=== PATIENT | female | born 1960 | race Caucasian/White ===

== ENCOUNTER 2019-12-12 11:34 | Emergency (ER) | payer BC, SELFPAY ==
--- NOTE | ~2019-12-12 | XR_ITS ---
XR chest 2V DATE: 12/12/2019 12:10 INDICATION: Shortness breath. Flulike symptoms. Left back pain. TECHNIQUE: PA and lateral views COMPARISON: None FINDINGS: Normal heart size. Mild discoid atelectasis or scarring at the posterior left lung base. Th e lungs otherwise appear clear. No pleural effusion or pulmonary vascular congestion or pneumothorax. No hilar or mediastinal enlargement. Aortic calcification. Included skeletal structures are unremarkable. IMPRESSION: Mild atelectasis or scarring at the posterior left lung base, left lower lobe Reviewed, dictated and finalized at location A. [employer]
[2019-12-12 11:37] VITALS: BP 130/78; PULSE 115; RESP 16; TEMP 36.9; O2SAT 97
--- NOTE | 2019-12-12 12:23 | ED.URI ---
HPI - URI/Sore Throat General Chief Complaint: Upper Respiratory Infection Stated Complaint: sick case Time Seen by Provider: 12/12/19 12:16 Source: patient and RN notes reviewed Mode of arrival: ambulatory Limitations: no limitations History of Present Illness HPI Narrative: A 59 y/o female presents to the ED with a dry cough for the past 3 weeks. She states that her cough has been improving but that last night she began to cough and sneeze violently when she heard a pop in her upper lt back. She reports immediate severe upper lt back pain, so she decided to come to the ED. She denies any fevers, chills, SOB, CP, N/V/D, ABD pain, and any other medical complaints at the same time. MD elicited complaint: cough (dry) Onset (ago): week(s) (3) Consistency: improved Associated symptoms: other (sneezing and severe lt uppper back pain) Related Data Allergies Allergy/AdvReac Type Severity Reaction Status Date / Time No Known Allergies Allergy Mild Verified 12/12/19 11:42 Review of Systems Review of Systems: All systems reviewed & are unremarkable except as noted in HPI and below Constitutional: Constitutional: Denies chills, Denies fatigue, Denies fever(s), Denies headache(s) and Denies night sweats Eyes: Eyes: Denies change in vision, Denies loss of vision and Denies other visual disturbances ENT: Denies headache(s), Denies hoarseness, Denies epistaxis, Denies nasal congestion, Denies sore throat and Reports other (sneezing) Cardiovascular: Cardiovascular: Denies chest pain, Denies leg edema, Denies palpitations and Denies dyspnea Respiratory: Respiratory: Reports cough (dry), Denies dyspnea and Denies wheezing Gastrointestinal: Gastrointestinal: Denies abdominal pain, Denies diarrhea, Denies nausea and Denies vomiting Genitourinary: Genitourinary: Denies hematuria, Denies urinary frequency and Denies dysuria Musculoskeletal: Musculoskeletal: Denies abnormal gait, Reports back pain (severe upper lt back pain), Denies deformity, Denies joint swelling, Denies muscle weakness and Denies numbness Integumentary/Breasts: Skin/Breast: Denies rash, Denies unusual bruising and Denies wounds Neurologic: Denies abnormal gait, Denies headache(s), Denies focal weakness, Denies loss of vision and Denies numbness Psychiatric: Psychiatric: Reports no additional psychiatric complaints Endocrine: Endocrine: Denies fatigue and Denies palpitations Hematologic/Lymphatic: Hematologic/Lymphatic: Denies easy bleeding and Denies easy bruising Allergic/Immunologic: Allergic/Immunologic: Denies wheezing PMFSH Past Medical History Medical History (Updated 12/12/19 @ 15:06 by Robinson Garibay MD) Endometriosis Surgical History Surgical History (Updated 12/12/19 @ 12:24 by Tanner Deleon) History of hand surgery History of hysterectomy Social History Social History (Updated 12/12/19 @ 12:25 by Tanner Deleon) Smoking packs per day: 1 Smoking cigarettes per day: 20.0 Smoking status: Current every day smoker Exam Const: General: healthy appearing, no acute distress and well developed Nutritional Appearance: well nourished Orientation/consciousness: patient oriented x3 (alert) and Other orientation findings (Alert) Limitations: no limitations HENMT: Head: normocephalic and atraumatic Ears: external ears normal General nose exam: No nasal discharge present and no epistaxis Face and sinus: face symmetric Mouth: Yes lip normal, Yes tongue normal and Yes moist mucous membranes Throat: other (No exudate, no erythema) Eyes: Conjunctivae: conjunctivae normal Sclera: sclerae normal EOM: EOMs intact bilaterally Neck: Neck: full ROM, no lymphadenopathy and supple Thyroid: thyroid normal Chest: Chest palpation & inspection: no tenderness Resp: Effort & Inspection: normal respiratory effort Auscultation: clear to auscultation bilaterally, no rales, no rhonchi, no wheezes and other (breath sounds equal) Cardio: Rate: tachycardic Rhythm: r
--- NOTE | 2019-12-12 12:34 | ECG_ITS ---
Measurements Intervals Harvest Rate: 104 P: 31 IA: 152 QRS: -14 QRSD: 67 T: 48 QT: 350 QTc: 461 Interpretive Statements SINUS TACHYCARDIA DELAYED PRECORDIAL R/S TRANSITION BORDERLINE ST-T WAVE ABNORMALITY- ANTERIOR LEADS BORDERLINE ECG Electronically Signed On 12-12-2019 16:38:17 [employer] AND [employer] TECHNICIAN by Khai Mccarthy D.O.
[2019-12-12 12:42] LABS: Basophils Absolute Auto 0.1 K/mm3 (0.0-0.1); Basophils Percent Auto 0.7 % (0.2-1.2); Eosinophils Absolute Auto 0.1 K/mm3 (0-0.3); Eosinophils Percent Auto 0.9 % (0-4.4); Hematocrit 47.1 % (37.0-47.0); Hemoglobin 15.8 g/dL (12.0-15.0); Immature Granulocyte Absolute 0.07 K/mm3 (0.00-0.031); Immature Granulocyte Percent A 0.6 % (0-0.5); Lymphocytes Absolute Auto 3.24 K/mm3 (0.9-3.2); Lymphocytes Percent Auto 27.3 % (18.3-44.2); Mean Corpuscular HGB Conc 33.5 g/dl (32-36); Mean Corpuscular Hemoglobin 32.2 pg (26-34); Mean Corpuscular Volume 95.9 fl (80-100); Mean Platelet Volume 9.9 fl (7.4-10.4); Monocytes Percent Auto 8.1 % (2.6-8.5); Neutrophils Absolute Auto 7.4 K/mm3 (1.3-6.7); Neutrophils Percent Auto 62.4 % (45.5-73.1); Platelet Count Result 360 k/mm3 (150-375); Red Blood Count 4.91 M/mm3 (4.2-5.4); Red Cell Distribution Width 12.2 % (11.5-14.5); White Blood Count 11.9 K/mm3 (4.5-10.0)
[2019-12-12 12:54] LABS: Blood Urea Nitrogen 9 mg/dL (7-17); Calcium 9.7 mg/dL (8.4-10.2); Carbon Dioxide 21 mmol/L (22-30); Chloride 96 mmol/L (98-107); Estimated CRCL calculation 85 ml/min; Estimated Glomerular Filt Rate > 60; Glucose 244 mg/dL (65-105); Potassium 4.4 mmol/L (3.4-5.0); Sodium 137 mmol/L (137-145)
[2019-12-12 12:58] LABS: D Dimer 0.43 ug/mL (<0.48)
[2019-12-12 13:06] LABS: Troponin I < 0.012 ng/mL (0.000-0.034)
[2019-12-12 13:26] LABS: Beta-Hydroxybutyrate/Acetoacetate 0.22 mmol/L (0.02-0.27)
[2019-12-12] MEDS: KETOROLAC 30 MG/ML VIAL (*BKC) IV PUSH (13:39)
[2019-12-12] MEDS: INSULIN HUMAN REGULAR (*BKC) 100 UNITS/ML IV PUSH (13:41)
[2019-12-12] MEDS: LACTATED RINGERS 1,000 ML 999 ML IV CONT (13:44)
[2019-12-12 14:34] LABS: Glucose Point of Care 170 (65-105)
[2019-12-12 15:16] LABS: Add Urine Microscopic? YES; Appearance Urine Cloudy (Clear); Bacteria Urine Trace /hpf; Bilirubin Urine Negative (Negative); Blood Urine Negative (Negative); Color Urine Yellow (Yellow); Glucose Urine UA 2+ mg/dL (Negative); Ketones Urine Trace mg/dL (Negative); Leukocyte Esterase Ur Negative LEU/UL (Negative); Mucus Urine Heavy /lpf; Nitrate Urine Negative (Negative); Protein Urine 1+ mg/dL (Negative); RBC Urine 0-2 /hpf (0-2); Specific Grav Ur 1.027 (1.001-1.035); Squamous Epithelial Cell Urine Many /hpf (Few); Urobilinogen Urine Negative mg/dL (<2.0); WBC Urine 0-3 /hpf
[2019-12-12 15:44] LABS: Hemoglobin A1C 8.7 % (<5.7)
[2019-12-12 15:59] VITALS: BP 122/68; PULSE 100; RESP 20; O2SAT 97
--- NOTE | 2019-12-18 08:24 | PC.NURSE ---
LATE ENTRY This note is being entered to document information to the patient's record. The following information was omitted on [12/12/2019], by [SURESH Langley]. LR 1000mL infused with a stop time of 1445.
== END 2019-12-12 16:00 | disposition home or self-care (01) ==
PROVIDERS: Emergency Provider Emergency Medicine
DX: J40 Bronchitis, not specified as acute or chronic (principal); E11.9 Type 2 diabetes mellitus without complications; S29.012A Strain of muscle and tendon of back wall of thorax, initial encounter; F17.210 Nicotine dependence, cigarettes, uncomplicated; N80.9 Endometriosis, unspecified; R00.0 Tachycardia, unspecified; R94.31 Abnormal electrocardiogram [ECG] [EKG]; X50.9XXA Other and unspecified overexertion or strenuous movements or postures, initial encounter
CPT/HCPCS: 36415; 71046; 80048; 81001; 82010; 83036; 84443; 84484; 85025; 85380; 87804; 93005; 96361; 96374; 96375; 99284; J1815; J1885; J7120

== ENCOUNTER 2025-10-14 15:04 | Inpatient (IN) | payer SELFPAY ==
[2025-10-14] VITALS (24 sets, daily range): BP systolic 137–171; BP diastolic 67–84; PULSE 81–102; RESP 14–18; TEMP 35.4–36.4; O2SAT 97–100; BMI 22.6
--- NOTE | ~2025-10-14 | XR_ITS ---
EXAMINATION: XR chest 1V portable COMPARISON: No comparisons available. HISTORY: weakness FINDINGS: The lungs are clear, no effusion. No pneumothorax. Heart is normal size. Mediastinal and hilar contours are within normal limits. Bony thorax no acute abnormality. Miscellaneous: None Impression: No acute cardiopulmonary abnormality. Reviewed, dictated and finalized at location P. OR SYSTEMS ANALYST Impression: No acute cardiopulmonary abnormality.
--- NOTE | ~2025-10-14 | CT_ITS ---
CTA neck Clinical History: Acute CVA Technique: Helical images thoracic inlet through skull base 100 mL IV contrast Coronal, sagittal reformats. Multiplanar MIPS CT images acquired with automatic exposure control for dose reduction. DLP: 495 mGy-cm Comparison: None Findings: NASCET Criteria utilized CTA FINDINGS: Aortic arch: No aneurysm or dissection. Great vessel origins: No stenosis. Critical stenosis middle left subclavian artery. Appearance suggests acute thrombus. CCAs: No stenosis. Cervical ICAs: Carotid bulb disease but no significant stenosis. Vertebral Arteries: Occluded left V4 segment. Right side critical ostial stenosis. Visualized [place]: Unremarkable. NON-CTA FINDINGS: Lung Apices: Emphysema. Thyroid: Unremarkable. Nodes: No enlarged nodes. Bones: No acute bony abnormality. Esophageal wall thickening/esophagitis. Findings discussed via telephone by myself with Dr. Armstrong in emergency Department at 9:10 AM EST. IMPRESSION: 1. Occluded left vertebral artery distally. Worrisome for embolus given below. 2. Severe stenosis left subclavian artery from noncalcified thrombus Reviewed, dictated and finalized at location R. Y LEVEL MANAGER
--- NOTE | ~2025-10-14 | XR_ITS ---
Examination: XR chest 1V portable Clinical History: Worsening cough Comparison: 1 day prior Technique: Portable AP Findings: Heart size normal. Lungs clear. No acute bony abnormality. IMPRESSION: 1. No acute cardiopulmonary findings given portable technique. Reviewed, dictated and finalized at location R. OR TAX SPECIALIST
--- NOTE | ~2025-10-14 | CT_ITS ---
EXAMINATION: CT angiogram brain with and without contrast: DATE: 10/14/2025 INDICATION: 55-year-old female with altered mental status. TECHNIQUE: Noncontrast CT head was performed followed by postcontrast CT angiogram with 100 cc of Omnipaque 350. Multiplanar and 3-D reconstruction obtained. Radiation dose 995 MG Y C.M. COMPARISON: None. FINDINGS: No acute intracranial lesions in the precontrast CT. Focal encephalomalacia of the left occipital lobe consistent with old infarct. On the CT angiogram, intracranial portion of internal carotid arteries are patent on both sides. The anterior and the middle cerebral arteries are patent on both sides. The vertebral and basilar arteries are patent. The posterior cerebral arteries are patent with right posterior cerebral arteries supplied from the anterior circulation. Dural venous sinuses are patent. IMPRESSION: 1. No acute intracranial finding on precontrast study. 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 2. Major arteries of [place] are patent. Dural venous sinuses are patent. Reviewed, dictated and finalized at location T. FLOPPER IMPRESSION: 1. No acute intracranial finding on precontrast study. 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 2. Major arteries of [place] are patent. Dural venous sinuses are white nt.
--- NOTE | ~2025-10-14 | CT_ITS ---
EXAMINATION: CTA chest PE abdomen pel, 10/14/2025 16:50 MANAGER SOCIAL SERVICES HISTORY: sob COMPARISON: No comparisons available. TECHNIQUE: CTA scan with 3D Reconstructions of the chest, CT of the abdomen and pelvis was performed with contrast Isovue 300, 92cc injected IV. One or more of the following dose reduction techniques were used: automated exposure control, adjustment of the mA and/or kV according to patient size, use of iterative reconstruction technique. Unless otherwise stated, incidental findings do not require dedicated follow up imaging FINDINGS: CT chest: No significant coronary calcification is present ([id number]) LUNGS: Contrast bolus is adequate, there is no pulmonary embolism identified. No tracheomalacia. No bronchiectasis. Minimal pulmonary fibrotic changes. Minimal emphysematous changes. No significant honeycombing identified or areas of bullous formation. Right lower lobe pleural-based 6 mm nodule, in a high-risk patient six-month follow-up is suggested. HEART AND PERICARDIUM: Within normal limits. AORTA: Atherosclerotic changes of the aorta without aneurysm. MEDIASTINUM: Unremarkable. THYROID: The thyroid is unremarkable. CT abdomen: LIVER: Unremarkable, liver contours intact, no lesions. SPLEEN: Unremarkable, no splenomegaly. KIDNEYS: Right Kidney: Unremarkable. No calculi. No hydronephrosis. Left Kidney: Unremarkable. No calculi. No hydronephrosis ADRENAL GLANDS: Unremarkable. PANCREAS: GALLBLADDER/BILIARY: Unremarkable. No biliary dilatation. STOMACH AND ESOPHAGUS: Circumferential thickening of the esophagus. Very small hiatal hernia. BOWEL/MESENTERY: Duodenal diverticulum 2 x 2 cm. There is thickening of the rectum and sigmoid colon as well as the descending colon with mild mucosal hyperemia but no perforation or abscess. Minimal thickening noted of the remaining large bowel. Appendix normal. Mesentery appears normal. There are no thickened or dilated loops of small bowel appreciated. RETROPERITONEUM: Unremarkable AORTA/VASCULATURE: Normal caliber aorta. FREE FLUID OR FREE AIR: None. CT pelvis: SOLID ORGANS/REPRODUCTIVE: Hysterectomy. No adnexal mass. BLADDER: Within normal limits. LYMPHADENOPATHY: No lymphadenopathy. OSSEOUS STRUCTURES: No acute osseous abnormality.No suspicious lesions. OVERLYING SOFT TISSUES: Unremarkable. IMPRESSION: 1. Negative for pulmonary embolism. No acute process within the chest. 2. Colitis detailed above probably infectious. No perforation or abscess. Follow-up suggested to assess resolution 3. Incidental findings above Reviewed, dictated and finalized at location P. GER SOCIAL SERVICES IMPRESSION: 1. Negative for pulmonary embolism. No acute process within the chest. 2. Colitis detailed above probably infectious. No perforation or abscess. Follo w-up suggested to assess resolution 3. Incidental findings above
--- NOTE | 2025-10-14 15:07 | ED.GENADULT ---
HPI - General Adult General Chief complaint: Altered Mental Status <Liu Pina MD - Last Filed: 10/14/25 18:24> Stated complaint: AMS <Liu Pina MD - Last Filed: 10/14/25 18:24> Time Seen by Provider: 10/14/25 15:07 <Liu Pina MD - Last Filed: 10/14/25 18:24> History of Present Illness HPI narrative: This is a 65-year-old female no reported past medical history and has not seen a physician in over 30 years who presents from home with chief complaint of sick. Per family who arrived the patient had been vomiting was globally weak difficult to respond. She has been complaining of some urinary symptoms nausea and vomiting. She takes no medications. She denies any abdominal pain no lateralizing weakness or paresthesias no falls no fevers or chills no headache. Patient states ?there is nothing wrong with me?. <Liu Pina MD - Last Filed: 10/14/25 18:24> Related Data Allergies/adverse reactions: Allergies Allergy/AdvReac Type Severity Reaction Status Date / Time No Known Allergies Allergy Mild Verified 10/15/25 00:09 <Liu Pina MD - Last Filed: 10/14/25 18:24> Review of Systems Review of Systems: All systems reviewed & are unremarkable except as noted in HPI and below <Liu Pina MD - Last Filed: 10/14/25 18:24> [facility] Past Medical History Medical History: Medical History (Updated 10/14/25 @ 22:35 by Mona Bazan DO) Endometriosis <Liu Pina MD - Last Filed: 10/14/25 18:24> Surgical History Surgical History: Surgical History (Updated 10/14/25 @ 22:17 by Mona Bazan DO) History of surgery on right wrist (2003) Due to distal forearm fracture History of hysterectomy <Liu Pina MD - Last Filed: 10/14/25 18:24> Social History Social History: Social History (Updated 10/14/25 @ 22:30 by Mona Bazan DO) Social History: Code status: Full code Surrogate decision maker: Smoking packs per day: 1 Smoking cigarettes per day: 20.0 Years smoked: 45 Smoking pack-years: 45.00 Smoking status: Heavy tobacco smoker Second hand tobacco smoke exposure: Yes <Liu Pina MD - Last Filed: 10/14/25 18:24> Exam Narrative: EXAMINATION OF ORGAN SYSTEMS/BODY AREAS: Constitutional: Vital signs per nursing patient is borderline hypo GENERAL: Patient is slightly diet, actively vomiting HEAD: Normal with no signs of head trauma. EYES: EOMI, conjunctiva normal ENT: Hearing grossly intact LUNGS: Nonlabored breathing. Clear to auscultation HEART: [Regular rate and rhythm], sluggish cap refill skin is cool to touch 2+ radial pulses. ABD: [Soft], [nontender to palpation], no rebound or guarding. EXT: Normal range of motion SKIN: [No rashes or lesions.] NEURO: Patient is alert oriented x3, cranial nerves 2-12 intact cerebellar testing negative. I did not assess the patient's gait. NIH score of 0 PSYCH: Normal affect <Liu Pina MD - Last Filed: 10/14/25 18:24> Course Vital Signs Vital signs: Vital Signs Temperature 95.7 F L 10/14/25 15:09 Pulse Rate 81 10/14/25 15:09 Respiratory Rate 18 10/14/25 15:09 Blood Pressure 164/71 H 10/14/25 15:09 Pulse Oximetry 98 10/14/25 15:09 Oxygen Delivery Room Air 10/14/25 15:09 Temperature 97.6 F 10/14/25 19:16 Pulse Rate 99 10/14/25 23:38 Respiratory Rate 18 10/14/25 23:38 Blood Pressure 146/82 H 10/14/25 22:36 Pulse Oximetry 100 10/14/25 22:36 Oxygen Delivery Room Air 10/14/25 22:51 <Liu Pina MD - Last Filed: 10/14/25 18:24> Vital Signs Temperature 95.7 F L 10/14/25 15:09 Pulse Rate 81 10/14/25 15:09 Respiratory Rate 18 10/14/25 15:09 Blood Pressure 164/71 H 10/14/25 15:09 Pulse Oximetry 98 10/14/25 15:09 Oxygen Delivery Room Air 10/14/25 15:09 Temperature 97.6 F 10/14/25 19:16 Pulse Rate 99 10/14/25 23:38 Respiratory Rate 18 10/14/25 23:38 Blood Pressure 146/82 H 10/14/25 22:36 Pulse Oximetry 100 10/14/25 22:36 Oxygen Delivery Room Air 10/14/25 22:51 <Aldo Swift DO - Last Filed: 10/15/25 00:13> [facility] Differential Diagnosis Differential Diagnosis: This 65-year-old female with reportedly no past medical history presents nausea vomiting intermittent altered mental status who is cold and clammy to touch. Her blood sugars over 400. I am concern for systemic infectious etiology. There was concern for slurred speech however her NIH is 0 she has no lateralizing neurological findings. I do not have suspicion at this juncture for ischemic stroke will get CT and CTAs of the head in addition to CT abdomen pelvis and chest she does appear to be critically ill. Obtain blood cultures urinalysis basic labs continuous vital sign monitoring IV fluids of 30 cc/kg bolus of ideal weight fluids for presumed underlying sepsis implant for evaluation after workup and treatment. Results and re-evaluation Patient's labs notable for a lactic acid of 5, blood sugar of over 400 A1c of 10 she has a mild elevated anion gap and low bicarb concerning for [id number] DKA. We will do IV hydration and repeat the lactic acid and metabolic panel. I did call and speak with Dr. Ellison the ICU the recommends recheck in the metabolic panel and should it be still concerning for [id number] DKA after IV fluids we will start the IV insulin drip and admitted to the ICU otherwise she will be appropriate for the step-down telemetry bed. Patient will be signed out to oncoming ED MD pending repeat metabolic panel with plan for hospital admission. Patient family updated sign out in tears condition. Patient's labs notable for UA with bacteria wbc's nitrite positive so urine culture was sent I did give her 2 g of IV Rocephin. <Liu Pina MD - Last Filed: 10/14/25 18:24> This 65-year-old female with reportedly no past medical history presents nausea vomiting intermittent altered mental status who is cold and clammy to touch. Her blood sugars over 400. I am concern for systemic infectious etiology. There was concern for slurred speech however her NIH is 0 she has no lateralizing neurological findings. I do not have suspicion at this juncture for ischemic stroke will get CT and CTAs of the head in addition to CT abdomen pelvis and chest she does appear to be critically ill. Obtain blood cultures urinalysis basic labs continuous vital sign monitoring IV fluids of 30 cc/kg bolus of ideal weight fluids for presumed underlying sepsis implant for evaluation after workup and treatment. Results and re-evaluation Patient's labs notable for a lactic acid of 5, blood sugar of over 400 A1c of 10 she has a mild elevated anion gap and low bicarb concerning for [id number] DKA. We will do IV hydration and repeat the lactic acid and metabolic panel. I did call and speak with Dr. Ellison the ICU the recommends recheck in the metabolic panel and should it be still concerning for [id number] DKA after IV fluids we will start the IV insulin drip and admitted to the ICU otherwise she will be appropriate for the step-down telemetry bed. Patient will be signed out to oncoming ED MD pending repeat metabolic panel with plan for hospital admission. Patient family updated sign out in tears condition. Patient's labs notable for UA with bacteria wbc's nitrite positive so urine culture was sent I did give her 2 g of IV Rocephin. Patient signed out to me pending repeat BMP. Repeat BMP showed closure of the gap. Patient will be admitted to the hospitalist. Case was discussed with Dr. Bazan who will admit the patient. <Aldo Swift DO - Last Filed: 10/15/25 00:13> Lab Data MDM Lab Attestation statement: I personally reviewed the patient's lab results. <Liu Pina MD - Last Filed: 10/14/25 18:24> Result diagrams: 10/14/25 16:53 10/14/25 21:03 <Liu Pina MD - Last Filed: 10/14/25 18:24> Labs: Lab Results 10/14/25 10/14/25 10/14/25 Range/Units 15:44 15:44 15:44 WBC (4.5-10.0) K/mm3 RBC (4.2-5.4) M/mm3 Hgb (12.0-15.0) g/dL Hct (37.0-47.0) % MCV (80-100) fl MCH (26-34) pg MCHC (32-36) g/dl RDW (11.5-14.5) % Plt Count (150-375) k/mm3 MPV (7.4-10.4) fl Immature Gran % (Auto) (0-0.5) % Neut % (Auto) (45.5-73.1) % Lymph % (Auto) (18.3-44.2) % [place] % (Auto) (2.6-8.5) % Eos % (Auto) (0-4.4) % Baso % (Auto) (0.2-1.2) % Lymph # (Auto) (0.9-3.2) K/mm3 [place] # (Auto) (0.1-0.6) K/mm3 Eos # (Auto) (0-0.3) K/mm3 Baso # (Auto) (0.0-0.1) K/mm3 Abs Immat Gran (auto) (0.00-0.031) K/mm3 Absolute Neuts (auto) (1.3-6.7) K/mm3 Absolute Nucleated RBC (0.0-0.012) K/mm3 Nucleated RBC % (0.0-0.2) % PT 13.3 (11.1-14.7) Seconds INR 1.0 Sodium 136 L (137-145) mmol/L Potassium 3.1 L (3.4-5.0) mmol/L Chloride 104 (98-107) mmol/L Carbon Dioxide 18 L (22-30) mmol/L Anion Gap 14 H (4-12) mmol/L BUN 12 (7-17) mg/dL Creatinine 0.61 L (0.7-1.0) mg/dL Estim Creat Clear Calc 66 ml/min Estimated GFR > 60 (59 - ) Glucose 411 H (65-110) mg/dL Hemoglobin A1c 10.2 H (<5.7) % Lactic Acid 4.2 H* (0.7-2.0) mmol/L Calcium 9.9 (8.4-10.2) mg/dL Phosphorus 4.1 Cancelled (2.5-4.5) mg/dL Magnesium 2.1 Cancelled (1.6-2.3) mg/dL Total Bilirubin 0.6 (0.2-1.3) mg/dL AST 22 (14-36) U/L ALT 23 (6-35) U/L Alkaline Phosphatase 181 H (38-126) U/L Ammonia < 9 L (9-30) umol/L Troponin I < 0.012 (0.000-0.034) ng/mL Total Protein 8.4 H (6.3-8.2) g/dL Albumin 4.6 (3.5-5.1) g/dL TSH 1.740 (0.465-4.680) uIU/mL Urine Color (Yellow) Urine Appearance (Clear) Urine pH (5.0-9.0) Ur Specific [place] (1.001-1.035) Urine Protein (Negative) mg/dL Urine Glucose (UA) (Negative) mg/dL Urine Ketones (Negative) mg/dL Ur Blood (Man) (Negative) Urine Nitrate (Negative) Urine Bilirubin (Negative) Urine Urobilinogen (<2.0) mg/dL Leukocyte Esterase Rfl (Negative) YUNG/UL Urine RBC (0-2) /hpf Urine WBC (0-3) /hpf Ur Squamous Epith Cells (Few) /hpf Urine Bacteria /hpf Urine Casts Urine Opiates Screen (Negative) Urine Methadone Screen (Negative) Ur Barbiturates Screen (Negative) Ur Phencyclidine Scrn (Negative) Ur Amphetamine Screen (Negative) U Benzodiazepines Scrn (Negative) Urine Cocaine Screen (Negative) U Cannabinoids Screen (Negative) Ethyl Alcohol < 10 (<10) mg/dL 10/14/25 10/14/25 10/14/25 Range/Units 16:32 16:53 18:03 WBC 15.5 H (4.5-10.0) K/mm3 RBC 4.15 L (4.2-5.4) M/mm3 Hgb 13.8 (12.0-15.0) g/dL Hct 39.9 (37.0-47.0) % MCV 96.1 (80-100) fl MCH 33.3 (26-34) pg MCHC 34.6 (32-36) g/dl RDW 12.6 (11.5-14.5) % Plt Count 231 (150-375) k/mm3 MPV 9.9 (7.4-10.4) fl Immature Gran % (Auto) 1.4 H (0-0.5) % Neut % (Auto) 79.7 H (45.5-73.1) % Lymph % (Auto) 13.6 L (18.3-44.2) % [place] % (Auto) 4.7 (2.6-8.5) % Eos % (Auto) 0.1 (0-4.4) % Baso % (Auto) 0.5 (0.2-1.2) % Lymph # (Auto) 2.11 (0.9-3.2) K/mm3 [place] # (Auto) 0.7 H (0.1-0.6) K/mm3 Eos # (Auto) 0.0 (0-0.3) K/mm3 Baso # (Auto) 0.1 (0.0-0.1) K/mm3 Abs Immat Gran (auto) 0.22 H (0.00-0.031) K/mm3 Absolute Neuts (auto) 12.3 H (1.3-6.7) K/mm3 Absolute Nucleated RBC 0.000 (0.0-0.012) K/mm3 Nucleated RBC % 0.0 (0.0-0.2) % PT (11.1-14.7) Seconds INR Sodium (137-145) mmol/L Potassium (3.4-5.0) mmol/L Chloride (98-107) mmol/L Carbon Dioxide (22-30) mmol/L Anion Gap (4-12) mmol/L BUN (7-17) mg/dL Creatinine (0.7-1.0) mg/dL Estim Creat Clear Calc ml/min Estimated GFR (59 - ) Glucose (65-110) mg/dL Hemoglobin A1c (<5.7) % Lactic Acid 3.4 H (0.7-2.0) mmol/L Calcium (8.4-10.2) mg/dL Phosphorus (2.5-4.5) mg/dL Magnesium (1.6-2.3) mg/dL Total Bilirubin (0.2-1.3) mg/dL AST (14-36) U/L ALT (6-35) U/L Alkaline Phosphatase (38-126) U/L Ammonia (9-30) umol/L Troponin I (0.000-0.034) ng/mL Total Protein (6.3-8.2) g/dL Albumin (3.5-5.1) g/dL TSH (0.465-4.680) uIU/mL Urine Color Yellow (Yellow) Urine Appearance Clear (Clear) Urine pH 5.5 (5.0-9.0) Ur Specific [place] 1.029 (1.001-1.035) Urine Protein Negative (Negative) mg/dL Urine Glucose (UA) 3+ H (Negative) mg/dL Urine Ketones 2+ H (Negative) mg/dL Ur Blood (Man) Negative (Negative) Urine Nitrate Positive H (Negative) Urine Bilirubin Negative (Negative) Urine Urobilinogen 0.2 (<2.0) mg/dL Leukocyte Esterase Rfl Negative (Negative) YUNG/UL Urine RBC 0-2 (0-2) /hpf Urine WBC 6-10 H (0-3) /hpf Ur Squamous Epith Cells Occasional (Few) /hpf Urine Bacteria 4+ H /hpf Urine Casts 0-2 Urine Opiates Screen Negative (Negative) Urine Methadone Screen Negative (Negative) Ur Barbiturates Screen Negative (Negative) Ur Phencyclidine Scrn Negative (Negative) Ur Amphetamine Screen Negative (Negative) U Benzodiazepines Scrn Negative (Negative) Urine Cocaine Screen Negative (Negative) U Cannabinoids Screen Negative (Negative) Ethyl Alcohol (<10) mg/dL 10/14/25 10/14/25 10/14/25 Range/Units 18:05 21:03 21:03 WBC (4.5-10.0) K/mm3 RBC (4.2-5.4) M/mm3 Hgb (12.0-15.0) g/dL Hct (37.0-47.0) % MCV (80-100) fl MCH (26-34) pg MCHC (32-36) g/dl RDW (11.5-14.5) % Plt Count (150-375) k/mm3 MPV (7.4-10.4) fl Immature Gran % (Auto) (0-0.5) % Neut % (Auto) (45.5-73.1) % Lymph % (Auto) (18.3-44.2) % [place] % (Auto) (2.6-8.5) % Eos % (Auto) (0-4.4) % Baso % (Auto) (0.2-1.2) % Lymph # (Auto) (0.9-3.2) K/mm3 [place] # (Auto) (0.1-0.6) K/mm3 Eos # (Auto) (0-0.3) K/mm3 Baso # (Auto) (0.0-0.1) K/mm3 Abs Immat Gran (auto) (0.00-0.031) K/mm3 Absolute Neuts (auto) (1.3-6.7) K/mm3 Absolute Nucleated RBC (0.0-0.012) K/mm3 Nucleated RBC % (0.0-0.2) % PT (11.1-14.7) Seconds INR Sodium 138 Cancelled (137-145) mmol/L Potassium 3.9 (3.4-5.0) mmol/L Chloride (98-107) mmol/L Carbon Dioxide (22-30) mmol/L Anion Gap (4-12) mmol/L BUN (7-17) mg/dL Creatinine (0.7-1.0) mg/dL Estim Creat Clear Calc ml/min Estimated GFR (59 - ) Glucose (65-110) mg/dL Hemoglobin A1c (<5.7) % Lactic Acid (0.7-2.0) mmol/L Calcium (8.4-10.2) mg/dL Phosphorus Cancelled (2.5-4.5) mg/dL Magnesium Cancelled (1.6-2.3) mg/dL Total Bilirubin (0.2-1.3) mg/dL AST (14-36) U/L ALT (6-35) U/L Alkaline Phosphatase (38-126) U/L Ammonia (9-30) umol/L Troponin I (0.000-0.034) ng/mL Total Protein (6.3-8.2) g/dL Albumin (3.5-5.1) g/dL TSH (0.465-4.680) uIU/mL Urine Color (Yellow) Urine Appearance (Clear) Urine pH (5.0-9.0) Ur Specific [place] (1.001-1.035) Urine Protein (Negative) mg/dL Urine Glucose (UA) (Negative) mg/dL Urine Ketones (Negative) mg/dL Ur Blood (Man) (Negative) Urine Nitrate (Negative) Urine Bilirubin (Negative) Urine Urobilinogen (<2.0) mg/dL Leukocyte Esterase Rfl (Negative) YUNG/UL Urine RBC (0-2) /hpf Urine WBC (0-3) /hpf Ur Squamous Epith Cells (Few) /hpf Urine Bacteria /hpf Urine Casts Urine Opiates Screen (Negative) Urine Methadone Screen (Negative) Ur Barbiturates Screen (Negative) Ur Phencyclidine Scrn (Negative) Ur Amphetamine Screen (Negative) U Benzodiazepines Scrn (Negative) Urine Cocaine Screen (Negative) U Cannabinoids Screen (Negative) Ethyl Alcohol (<10) mg/dL 10/14/25 10/14/25 10/14/25 Range/Units 21:03 21:03 21:03 WBC (4.5-10.0) K/mm3 RBC (4.2-5.4) M/mm3 Hgb (12.0-15.0) g/dL Hct (37.0-47.0) % MCV (80-100) fl MCH (26-34) pg MCHC (32-36) g/dl RDW (11.5-14.5) % Plt Count (150-375) k/mm3 MPV (7.4-10.4) fl Immature Gran % (Auto) (0-0.5) % Neut % (Auto) (45.5-73.1) % Lymph % (Auto) (18.3-44.2) % [place] % (Auto) (2.6-8.5) % Eos % (Auto) (0-4.4) % Baso % (Auto) (0.2-1.2) % Lymph # (Auto) (0.9-3.2) K/mm3 [place] # (Auto) (0.1-0.6) K/mm3 Eos # (Auto) (0-0.3) K/mm3 Baso # (Auto) (0.0-0.1) K/mm3 Abs Immat Gran (auto) (0.00-0.031) K/mm3 Absolute Neuts (auto) (1.3-6.7) K/mm3 Absolute Nucleated RBC (0.0-0.012) K/mm3 Nucleated RBC % (0.0-0.2) % PT (11.1-14.7) Seconds INR Sodium (137-145) mmol/L Potassium Cancelled (3.4-5.0) mmol/L Chloride 108 H Cancelled (98-107) mmol/L Carbon Dioxide 21 L Cancelled (22-30) mmol/L Anion Gap 9 (4-12) mmol/L BUN (7-17) mg/dL Creatinine (0.7-1.0) mg/dL Estim Creat Clear Calc ml/min Estimated GFR (59 - ) Glucose (65-110) mg/dL Hemoglobin A1c (<5.7) % Lactic Acid (0.7-2.0) mmol/L Calcium (8.4-10.2) mg/dL Phosphorus (2.5-4.5) mg/dL Magnesium (1.6-2.3) mg/dL Total Bilirubin (0.2-1.3) mg/dL AST (14-36) U/L ALT (6-35) U/L Alkaline Phosphatase (38-126) U/L Ammonia (9-30) umol/L Troponin I (0.000-0.034) ng/mL Total Protein (6.3-8.2) g/dL Albumin (3.5-5.1) g/dL TSH (0.465-4.680) uIU/mL Urine Color (Yellow) Urine Appearance (Clear) Urine pH (5.0-9.0) Ur Specific [place] (1.001-1.035) Urine Protein (Negative) mg/dL Urine Glucose (UA) (Negative) mg/dL Urine Ketones (Negative) mg/dL Ur Blood (Man) (Negative) Urine Nitrate (Negative) Urine Bilirubin (Negative) Urine Urobilinogen (<2.0) mg/dL Leukocyte Esterase Rfl (Negative) YUNG/UL Urine RBC (0-2) /hpf Urine WBC (0-3) /hpf Ur Squamous Epith Cells (Few) /hpf Urine Bacteria /hpf Urine Casts Urine Opiates Screen (Negative) Urine Methadone Screen (Negative) Ur Barbiturates Screen (Negative) Ur Phencyclidine Scrn (Negative) Ur Amphetamine Screen (Negative) U Benzodiazepines Scrn (Negative) Urine Cocaine Screen (Negative) U Cannabinoids Screen (Negative) Ethyl Alcohol (<10) mg/dL 10/14/25 10/14/25 10/14/25 Range/Units 21:03 21:03 21:03 WBC (4.5-10.0) K/mm3 RBC (4.2-5.4) M/mm3 Hgb (12.0-15.0) g/dL Hct (37.0-47.0) % MCV (80-100) fl MCH (26-34) pg MCHC (32-36) g/dl RDW (11.5-14.5) % Plt Count (150-375) k/mm3 MPV (7.4-10.4) fl Immature Gran % (Auto) (0-0.5) % Neut % (Auto) (45.5-73.1) % Lymph % (Auto) (18.3-44.2) % [place] % (Auto) (2.6-8.5) % Eos % (Auto) (0-4.4) % Baso % (Auto) (0.2-1.2) % Lymph # (Auto) (0.9-3.2) K/mm3 [place] # (Auto) (0.1-0.6) K/mm3 Eos # (Auto) (0-0.3) K/mm3 Baso # (Auto) (0.0-0.1) K/mm3 Abs Immat Gran (auto) (0.00-0.031) K/mm3 Absolute Neuts (auto) (1.3-6.7) K/mm3 Absolute Nucleated RBC (0.0-0.012) K/mm3 Nucleated RBC % (0.0-0.2) % PT (11.1-14.7) Seconds INR Sodium (137-145) mmol/L Potassium (3.4-5.0) mmol/L Chloride (98-107) mmol/L Carbon Dioxide (22-30) mmol/L Anion Gap Cancelled (4-12) mmol/L BUN 11 Cancelled (7-17) mg/dL Creatinine 0.52 L Cancelled (0.7-1.0) mg/dL Estim Creat Clear Calc 76 ml/min Estimated GFR (59 - ) Glucose (65-110) mg/dL Hemoglobin A1c (<5.7) % Lactic Acid (0.7-2.0) mmol/L Calcium (8.4-10.2) mg/dL Phosphorus (2.5-4.5) mg/dL Magnesium (1.6-2.3) mg/dL Total Bilirubin (0.2-1.3) mg/dL AST (14-36) U/L ALT (6-35) U/L Alkaline Phosphatase (38-126) U/L Ammonia (9-30) umol/L Troponin I (0.000-0.034) ng/mL Total Protein (6.3-8.2) g/dL Albumin (3.5-5.1) g/dL TSH (0.465-4.680) uIU/mL Urine Color (Yellow) Urine Appearance (Clear) Urine pH (5.0-9.0) Ur Specific [place] (1.001-1.035) Urine Protein (Negative) mg/dL Urine Glucose (UA) (Negative) mg/dL Urine Ketones (Negative) mg/dL Ur Blood (Man) (Negative) Urine Nitrate (Negative) Urine Bilirubin (Negative) Urine Urobilinogen (<2.0) mg/dL Leukocyte Esterase Rfl (Negative) YUNG/UL Urine RBC (0-2) /hpf Urine WBC (0-3) /hpf Ur Squamous Epith Cells (Few) /hpf Urine Bacteria /hpf Urine Casts Urine Opiates Screen (Negative) Urine Methadone Screen (Negative) Ur Barbiturates Screen (Negative) Ur Phencyclidine Scrn (Negative) Ur Amphetamine Screen (Negative) U Benzodiazepines Scrn (Negative) Urine Cocaine Screen (Negative) U Cannabinoids Screen (Negative) Ethyl Alcohol (<10) mg/dL 10/14/25 10/14/25 10/14/25 Range/Units 21:03 21:03 21:03 WBC (4.5-10.0) K/mm3 RBC (4.2-5.4) M/mm3 Hgb (12.0-15.0) g/dL Hct (37.0-47.0) % MCV (80-100) fl MCH (26-34) pg MCHC (32-36) g/dl RDW (11.5-14.5) % Plt Count (150-375) k/mm3 MPV (7.4-10.4) fl Immature Gran % (Auto) (0-0.5) % Neut % (Auto) (45.5-73.1) % Lymph % (Auto) (18.3-44.2) % [place] % (Auto) (2.6-8.5) % Eos % (Auto) (0-4.4) % Baso % (Auto) (0.2-1.2) % Lymph # (Auto) (0.9-3.2) K/mm3 [place] # (Auto) (0.1-0.6) K/mm3 Eos # (Auto) (0-0.3) K/mm3 Baso # (Auto) (0.0-0.1) K/mm3 Abs Immat Gran (auto) (0.00-0.031) K/mm3 Absolute Neuts (auto) (1.3-6.7) K/mm3 Absolute Nucleated RBC (0.0-0.012) K/mm3 Nucleated RBC % (0.0-0.2) % PT (11.1-14.7) Seconds INR Sodium (137-145) mmol/L Potassium (3.4-5.0) mmol/L Chloride (98-107) mmol/L Carbon Dioxide (22-30) mmol/L Anion Gap (4-12) mmol/L BUN (7-17) mg/dL Creatinine (0.7-1.0) mg/dL Estim Creat Clear Calc Cancelled ml/min Estimated GFR > 60 Cancelled (59 - ) Glucose 316 H Cancelled (65-110) mg/dL Hemoglobin A1c (<5.7) % Lactic Acid (0.7-2.0) mmol/L Calcium 9.0 (8.4-10.2) mg/dL Phosphorus (2.5-4.5) mg/dL Magnesium (1.6-2.3) mg/dL Total Bilirubin (0.2-1.3) mg/dL AST (14-36) U/L ALT (6-35) U/L Alkaline Phosphatase (38-126) U/L Ammonia (9-30) umol/L Troponin I (0.000-0.034) ng/mL Total Protein (6.3-8.2) g/dL Albumin (3.5-5.1) g/dL TSH (0.465-4.680) uIU/mL Urine Color (Yellow) Urine Appearance (Clear) Urine pH (5.0-9.0) Ur Specific [place] (1.001-1.035) Urine Protein (Negative) mg/dL Urine Glucose (UA) (Negative) mg/dL Urine Ketones (Negative) mg/dL Ur Blood (Man) (Negative) Urine Nitrate (Negative) Urine Bilirubin (Negative) Urine Urobilinogen (<2.0) mg/dL Leukocyte Esterase Rfl (Negative) YUNG/UL Urine RBC (0-2) /hpf Urine WBC (0-3) /hpf Ur Squamous Epith Cells (Few) /hpf Urine Bacteria /hpf Urine Casts Urine Opiates Screen (Negative) Urine Methadone Screen (Negative) Ur Barbiturates Screen (Negative) Ur Phencyclidine Scrn (Negative) Ur Amphetamine Screen (Negative) U Benzodiazepines Scrn (Negative) Urine Cocaine Screen (Negative) U Cannabinoids Screen (Negative) Ethyl Alcohol (<10) mg/dL 10/14/25 Range/Units 21:03 WBC (4.5-10.0) K/mm3 RBC (4.2-5.4) M/mm3 Hgb (12.0-15.0) g/dL Hct (37.0-47.0) % MCV (80-100) fl MCH (26-34) pg MCHC (32-36) g/dl RDW (11.5-14.5) % Plt Count (150-375) k/mm3 MPV (7.4-10.4) fl Immature Gran % (Auto) (0-0.5) % Neut % (Auto) (45.5-73.1) % Lymph % (Auto) (18.3-44.2) % [place] % (Auto) (2.6-8.5) % Eos % (Auto) (0-4.4) % Baso % (Auto) (0.2-1.2) % Lymph # (Auto) (0.9-3.2) K/mm3 [place] # (Auto) (0.1-0.6) K/mm3 Eos # (Auto) (0-0.3) K/mm3 Baso # (Auto) (0.0-0.1) K/mm3 Abs Immat Gran (auto) (0.00-0.031) K/mm3 Absolute Neuts (auto) (1.3-6.7) K/mm3 Absolute Nucleated RBC (0.0-0.012) K/mm3 Nucleated RBC % (0.0-0.2) % PT (11.1-14.7) Seconds INR Sodium (137-145) mmol/L Potassium (3.4-5.0) mmol/L Chloride (98-107) mmol/L Carbon Dioxide (22-30) mmol/L Anion Gap (4-12) mmol/L BUN (7-17) mg/dL Creatinine (0.7-1.0) mg/dL Estim Creat Clear Calc ml/min Estimated GFR (59 - ) Glucose (65-110) mg/dL Hemoglobin A1c (<5.7) % Lactic Acid (0.7-2.0) mmol/L Calcium Cancelled (8.4-10.2) mg/dL Phosphorus 3.9 (2.5-4.5) mg/dL Magnesium 1.9 (1.6-2.3) mg/dL Total Bilirubin (0.2-1.3) mg/dL AST (14-36) U/L ALT (6-35) U/L Alkaline Phosphatase (38-126) U/L Ammonia (9-30) umol/L Troponin I (0.000-0.034) ng/mL Total Protein (6.3-8.2) g/dL Albumin (3.5-5.1) g/dL TSH (0.465-4.680) uIU/mL Urine Color (Yellow) Urine Appearance (Clear) Urine pH (5.0-9.0) Ur Specific [place] (1.001-1.035) Urine Protein (Negative) mg/dL Urine Glucose (UA) (Negative) mg/dL Urine Ketones (Negative) mg/dL Ur Blood (Man) (Negative) Urine Nitrate (Negative) Urine Bilirubin (Negative) Urine Urobilinogen (<2.0) mg/dL Leukocyte Esterase Rfl (Negative) YUNG/UL Urine RBC (0-2) /hpf Urine WBC (0-3) /hpf Ur Squamous Epith Cells (Few) /hpf Urine Bacteria /hpf Urine Casts Urine Opiates Screen (Negative) Urine Methadone Screen (Negative) Ur Barbiturates Screen (Negative) Ur Phencyclidine Scrn (Negative) Ur Amphetamine Screen (Negative) U Benzodiazepines Scrn (Negative) Urine Cocaine Screen (Negative) U Cannabinoids Screen (Negative) Ethyl Alcohol (<10) mg/dL <Liu Pina MD - Last Filed: 10/14/25 18:24> Lab Results 10/14/25 10/14/25 10/14/25 Range/Units 15:44 15:44 15:44 WBC (4.5-10.0) K/mm3 RBC (4.2-5.4) M/mm3 Hgb (12.0-15.0) g/dL Hct (37.0-47.0) % MCV (80-100) fl MCH (26-34) pg MCHC (32-36) g/dl RDW (11.5-14.5) % Plt Count (150-375) k/mm3 MPV (7.4-10.4) fl Immature Gran % (Auto) (0-0.5) % Neut % (Auto) (45.5-73.1) % Lymph % (Auto) (18.3-44.2) % [place] % (Auto) (2.6-8.5) % Eos % (Auto) (0-4.4) % Baso % (Auto) (0.2-1.2) % Lymph # (Auto) (0.9-3.2) K/mm3 [place] # (Auto) (0.1-0.6) K/mm3 Eos # (Auto) (0-0.3) K/mm3 Baso # (Auto) (0.0-0.1) K/mm3 Abs Immat Gran (auto) (0.00-0.031) K/mm3 Absolute Neuts (auto) (1.3-6.7) K/mm3 Absolute Nucleated RBC (0.0-0.012) K/mm3 Nucleated RBC % (0.0-0.2) % PT 13.3 (11.1-14.7) Seconds INR 1.0 Sodium 136 L (137-145) mmol/L Potassium 3.1 L (3.4-5.0) mmol/L Chloride 104 (98-107) mmol/L Carbon Dioxide 18 L (22-30) mmol/L Anion Gap 14 H (4-12) mmol/L BUN 12 (7-17) mg/dL Creatinine 0.61 L (0.7-1.0) mg/dL Estim Creat Clear Calc 66 ml/min Estimated GFR > 60 (59 - ) Glucose 411 H (65-110) mg/dL Hemoglobin A1c 10.2 H (<5.7) % Lactic Acid 4.2 H* (0.7-2.0) mmol/L Calcium 9.9 (8.4-10.2) mg/dL Phosphorus 4.1 Cancelled (2.5-4.5) mg/dL Magnesium 2.1 Cancelled (1.6-2.3) mg/dL Total Bilirubin 0.6 (0.2-1.3) mg/dL AST 22 (14-36) U/L ALT 23 (6-35) U/L Alkaline Phosphatase 181 H (38-126) U/L Ammonia < 9 L (9-30) umol/L Troponin I < 0.012 (0.000-0.034) ng/mL Total Protein 8.4 H (6.3-8.2) g/dL Albumin 4.6 (3.5-5.1) g/dL TSH 1.740 (0.465-4.680) uIU/mL Urine Color (Yellow) Urine Appearance (Clear) Urine pH (5.0-9.0) Ur Specific [place] (1.001-1.035) Urine Protein (Negative) mg/dL Urine Glucose (UA) (Negative) mg/dL Urine Ketones (Negative) mg/dL Ur Blood (Man) (Negative) Urine Nitrate (Negative) Urine Bilirubin (Negative) Urine Urobilinogen (<2.0) mg/dL Leukocyte Esterase Rfl (Negative) YUNG/UL Urine RBC (0-2) /hpf Urine WBC (0-3) /hpf Ur Squamous Epith Cells (Few) /hpf Urine Bacteria /hpf Urine Casts Urine Opiates Screen (Negative) Urine Methadone Screen (Negative) Ur Barbiturates Screen (Negative) Ur Phencyclidine Scrn (Negative) Ur Amphetamine Screen (Negative) U Benzodiazepines Scrn (Negative) Urine Cocaine Screen (Negative) U Cannabinoids Screen (Negative) Ethyl Alcohol < 10 (<10) mg/dL 10/14/25 10/14/25 10/14/25 Range/Units 16:32 16:53 18:03 WBC 15.5 H (4.5-10.0) K/mm3 RBC 4.15 L (4.2-5.4) M/mm3 Hgb 13.8 (12.0-15.0) g/dL Hct 39.9 (37.0-47.0) % MCV 96.1 (80-100) fl MCH 33.3 (26-34) pg MCHC 34.6 (32-36) g/dl RDW 12.6 (11.5-14.5) % Plt Count 231 (150-375) k/mm3 MPV 9.9 (7.4-10.4) fl Immature Gran % (Auto) 1.4 H (0-0.5) % Neut % (Auto) 79.7 H (45.5-73.1) % Lymph % (Auto) 13.6 L (18.3-44.2) % [place] % (Auto) 4.7 (2.6-8.5) % Eos % (Auto) 0.1 (0-4.4) % Baso % (Auto) 0.5 (0.2-1.2) % Lymph # (Auto) 2.11 (0.9-3.2) K/mm3 [place] # (Auto) 0.7 H (0.1-0.6) K/mm3 Eos # (Auto) 0.0 (0-0.3) K/mm3 Baso # (Auto) 0.1 (0.0-0.1) K/mm3 Abs Immat Gran (auto) 0.22 H (0.00-0.031) K/mm3 Absolute Neuts (auto) 12.3 H (1.3-6.7) K/mm3 Absolute Nucleated RBC 0.000 (0.0-0.012) K/mm3 Nucleated RBC % 0.0 (0.0-0.2) % PT (11.1-14.7) Seconds INR Sodium (137-145) mmol/L Potassium (3.4-5.0) mmol/L Chloride (98-107) mmol/L Carbon Dioxide (22-30) mmol/L Anion Gap (4-12) mmol/L BUN (7-17) mg/dL Creatinine (0.7-1.0) mg/dL Estim Creat Clear Calc ml/min Estimated GFR (59 - ) Glucose (65-110) mg/dL Hemoglobin A1c (<5.7) % Lactic Acid 3.4 H (0.7-2.0) mmol/L Calcium (8.4-10.2) mg/dL Phosphorus (2.5-4.5) mg/dL Magnesium (1.6-2.3) mg/dL Total Bilirubin (0.2-1.3) mg/dL AST (14-36) U/L ALT (6-35) U/L Alkaline Phosphatase (38-126) U/L Ammonia (9-30) umol/L Troponin I (0.000-0.034) ng/mL Total Protein (6.3-8.2) g/dL Albumin (3.5-5.1) g/dL TSH (0.465-4.680) uIU/mL Urine Color Yellow (Yellow) Urine Appearance Clear (Clear) Urine pH 5.5 (5.0-9.0) Ur Specific [place] 1.029 (1.001-1.035) Urine Protein Negative (Negative) mg/dL Urine Glucose (UA) 3+ H (Negative) mg/dL Urine Ketones 2+ H (Negative) mg/dL Ur Blood (Man) Negative (Negative) Urine Nitrate Positive H (Negative) Urine Bilirubin Negative (Negative) Urine Urobilinogen 0.2 (<2.0) mg/dL Leukocyte Esterase Rfl Negative (Negative) YUNG/UL Urine RBC 0-2 (0-2) /hpf Urine WBC 6-10 H (0-3) /hpf Ur Squamous Epith Cells Occasional (Few) /hpf Urine Bacteria 4+ H /hpf Urine Casts 0-2 Urine Opiates Screen Negative (Negative) Urine Methadone Screen Negative (Negative) Ur Barbiturates Screen Negative (Negative) Ur Phencyclidine Scrn Negative (Negative) Ur Amphetamine Screen Negative (Negative) U Benzodiazepines Scrn Negative (Negative) Urine Cocaine Screen Negative (Negative) U Cannabinoids Screen Negative (Negative) Ethyl Alcohol (<10) mg/dL 10/14/25 10/14/25 10/14/25 Range/Units 18:05 21:03 21:03 WBC (4.5-10.0) K/mm3 RBC (4.2-5.4) M/mm3 Hgb (12.0-15.0) g/dL Hct (37.0-47.0) % MCV (80-100) fl MCH (26-34) pg MCHC (32-36) g/dl RDW (11.5-14.5) % Plt Count (150-375) k/mm3 MPV (7.4-10.4) fl Immature Gran % (Auto) (0-0.5) % Neut % (Auto) (45.5-73.1) % Lymph % (Auto) (18.3-44.2) % [place] % (Auto) (2.6-8.5) % Eos % (Auto) (0-4.4) % Baso % (Auto) (0.2-1.2) % Lymph # (Auto) (0.9-3.2) K/mm3 [place] # (Auto) (0.1-0.6) K/mm3 Eos # (Auto) (0-0.3) K/mm3 Baso # (Auto) (0.0-0.1) K/mm3 Abs Immat Gran (auto) (0.00-0.031) K/mm3 Absolute Neuts (auto) (1.3-6.7) K/mm3 Absolute Nucleated RBC (0.0-0.012) K/mm3 Nucleated RBC % (0.0-0.2) % PT (11.1-14.7) Seconds INR Sodium 138 Cancelled (137-145) mmol/L Potassium 3.9 (3.4-5.0) mmol/L Chloride (98-107) mmol/L Carbon Dioxide (22-30) mmol/L Anion Gap (4-12) mmol/L BUN (7-17) mg/dL Creatinine (0.7-1.0) mg/dL Estim Creat Clear Calc ml/min Estimated GFR (59 - ) Glucose (65-110) mg/dL Hemoglobin A1c (<5.7) % Lactic Acid (0.7-2.0) mmol/L Calcium (8.4-10.2) mg/dL Phosphorus Cancelled (2.5-4.5) mg/dL Magnesium Cancelled (1.6-2.3) mg/dL Total Bilirubin (0.2-1.3) mg/dL AST (14-36) U/L ALT (6-35) U/L Alkaline Phosphatase (38-126) U/L Ammonia (9-30) umol/L Troponin I (0.000-0.034) ng/mL Total Protein (6.3-8.2) g/dL Albumin (3.5-5.1) g/dL TSH (0.465-4.680) uIU/mL Urine Color (Yellow) Urine Appearance (Clear) Urine pH (5.0-9.0) Ur Specific [place] (1.001-1.035) Urine Protein (Negative) mg/dL Urine Glucose (UA) (Negative) mg/dL Urine Ketones (Negative) mg/dL Ur Blood (Man) (Negative) Urine Nitrate (Negative) Urine Bilirubin (Negative) Urine Urobilinogen (<2.0) mg/dL Leukocyte Esterase Rfl (Negative) YUNG/UL Urine RBC (0-2) /hpf Urine WBC (0-3) /hpf Ur Squamous Epith Cells (Few) /hpf Urine Bacteria /hpf Urine Casts Urine Opiates Screen (Negative) Urine Methadone Screen (Negative) Ur Barbiturates Screen (Negative) Ur Phencyclidine Scrn (Negative) Ur Amphetamine Screen (Negative) U Benzodiazepines Scrn (Negative) Urine Cocaine Screen (Negative) U Cannabinoids Screen (Negative) Ethyl Alcohol (<10) mg/dL 10/14/25 10/14/25 10/14/25 Range/Units 21:03 21:03 21:03 WBC (4.5-10.0) K/mm3 RBC (4.2-5.4) M/mm3 Hgb (12.0-15.0) g/dL Hct (37.0-47.0) % MCV (80-100) fl MCH (26-34) pg MCHC (32-36) g/dl RDW (11.5-14.5) % Plt Count (150-375) k/mm3 MPV (7.4-10.4) fl Immature Gran % (Auto) (0-0.5) % Neut % (Auto) (45.5-73.1) % Lymph % (Auto) (18.3-44.2) % [place] % (Auto) (2.6-8.5) % Eos % (Auto) (0-4.4) % Baso % (Auto) (0.2-1.2) % Lymph # (Auto) (0.9-3.2) K/mm3 [place] # (Auto) (0.1-0.6) K/mm3 Eos # (Auto) (0-0.3) K/mm3 Baso # (Auto) (0.0-0.1) K/mm3 Abs Immat Gran (auto) (0.00-0.031) K/mm3 Absolute Neuts (auto) (1.3-6.7) K/mm3 Absolute Nucleated RBC (0.0-0.012) K/mm3 Nucleated RBC % (0.0-0.2) % PT (11.1-14.7) Seconds INR Sodium (137-145) mmol/L Potassium Cancelled (3.4-5.0) mmol/L Chloride 108 H Cancelled (98-107) mmol/L Carbon Dioxide 21 L Cancelled (22-30) mmol/L Anion Gap 9 (4-12) mmol/L BUN (7-17) mg/dL Creatinine (0.7-1.0) mg/dL Estim Creat Clear Calc ml/min Estimated GFR (59 - ) Glucose (65-110) mg/dL Hemoglobin A1c (<5.7) % Lactic Acid (0.7-2.0) mmol/L Calcium (8.4-10.2) mg/dL Phosphorus (2.5-4.5) mg/dL Magnesium (1.6-2.3) mg/dL Total Bilirubin (0.2-1.3) mg/dL AST (14-36) U/L ALT (6-35) U/L Alkaline Phosphatase (38-126) U/L Ammonia (9-30) umol/L Troponin I (0.000-0.034) ng/mL Total Protein (6.3-8.2) g/dL Albumin (3.5-5.1) g/dL TSH (0.465-4.680) uIU/mL Urine Color (Yellow) Urine Appearance (Clear) Urine pH (5.0-9.0) Ur Specific [place] (1.001-1.035) Urine Protein (Negative) mg/dL Urine Glucose (UA) (Negative) mg/dL Urine Ketones (Negative) mg/dL Ur Blood (Man) (Negative) Urine Nitrate (Negative) Urine Bilirubin (Negative) Urine Urobilinogen (<2.0) mg/dL Leukocyte Esterase Rfl (Negative) YUNG/UL Urine RBC (0-2) /hpf Urine WBC (0-3) /hpf Ur Squamous Epith Cells (Few) /hpf Urine Bacteria /hpf Urine Casts Urine Opiates Screen (Negative) Urine Methadone Screen (Negative) Ur Barbiturates Screen (Negative) Ur Phencyclidine Scrn (Negative) Ur Amphetamine Screen (Negative) U Benzodiazepines Scrn (Negative) Urine Cocaine Screen (Negative) U Cannabinoids Screen (Negative) Ethyl Alcohol (<10) mg/dL 10/14/25 10/14/25 10/14/25 Range/Units 21:03 21:03 21:03 WBC (4.5-10.0) K/mm3 RBC (4.2-5.4) M/mm3 Hgb (12.0-15.0) g/dL Hct (37.0-47.0) % MCV (80-100) fl MCH (26-34) pg MCHC (32-36) g/dl RDW (11.5-14.5) % Plt Count (150-375) k/mm3 MPV (7.4-10.4) fl Immature Gran % (Auto) (0-0.5) % Neut % (Auto) (45.5-73.1) % Lymph % (Auto) (18.3-44.2) % [place] % (Auto) (2.6-8.5) % Eos % (Auto) (0-4.4) % Baso % (Auto) (0.2-1.2) % Lymph # (Auto) (0.9-3.2) K/mm3 [place] # (Auto) (0.1-0.6) K/mm3 Eos # (Auto) (0-0.3) K/mm3 Baso # (Auto) (0.0-0.1) K/mm3 Abs Immat Gran (auto) (0.00-0.031) K/mm3 Absolute Neuts (auto) (1.3-6.7) K/mm3 Absolute Nucleated RBC (0.0-0.012) K/mm3 Nucleated RBC % (0.0-0.2) % PT (11.1-14.7) Seconds INR Sodium (137-145) mmol/L Potassium (3.4-5.0) mmol/L Chloride (98-107) mmol/L Carbon Dioxide (22-30) mmol/L Anion Gap Cancelled (4-12) mmol/L BUN 11 Cancelled (7-17) mg/dL Creatinine 0.52 L Cancelled (0.7-1.0) mg/dL Estim Creat Clear Calc 76 ml/min Estimated GFR (59 - ) Glucose (65-110) mg/dL Hemoglobin A1c (<5.7) % Lactic Acid (0.7-2.0) mmol/L Calcium (8.4-10.2) mg/dL Phosphorus (2.5-4.5) mg/dL Magnesium (1.6-2.3) mg/dL Total Bilirubin (0.2-1.3) mg/dL AST (14-36) U/L ALT (6-35) U/L Alkaline Phosphatase (38-126) U/L Ammonia (9-30) umol/L Troponin I (0.000-0.034) ng/mL Total Protein (6.3-8.2) g/dL Albumin (3.5-5.1) g/dL TSH (0.465-4.680) uIU/mL Urine Color (Yellow) Urine Appearance (Clear) Urine pH (5.0-9.0) Ur Specific [place] (1.001-1.035) Urine Protein (Negative) mg/dL Urine Glucose (UA) (Negative) mg/dL Urine Ketones (Negative) mg/dL Ur Blood (Man) (Negative) Urine Nitrate (Negative) Urine Bilirubin (Negative) Urine Urobilinogen (<2.0) mg/dL Leukocyte Esterase Rfl (Negative) YUNG/UL Urine RBC (0-2) /hpf Urine WBC (0-3) /hpf Ur Squamous Epith Cells (Few) /hpf Urine Bacteria /hpf Urine Casts Urine Opiates Screen (Negative) Urine Methadone Screen (Negative) Ur Barbiturates Screen (Negative) Ur Phencyclidine Scrn (Negative) Ur Amphetamine Screen (Negative) U Benzodiazepines Scrn (Negative) Urine Cocaine Screen (Negative) U Cannabinoids Screen (Negative) Ethyl Alcohol (<10) mg/dL 10/14/25 10/14/25 10/14/25 Range/Units 21:03 21:03 21:03 WBC (4.5-10.0) K/mm3 RBC (4.2-5.4) M/mm3 Hgb (12.0-15.0) g/dL Hct (37.0-47.0) % MCV (80-100) fl MCH (26-34) pg MCHC (32-36) g/dl RDW (11.5-14.5) % Plt Count (150-375) k/mm3 MPV (7.4-10.4) fl Immature Gran % (Auto) (0-0.5) % Neut % (Auto) (45.5-73.1) % Lymph % (Auto) (18.3-44.2) % [place] % (Auto) (2.6-8.5) % Eos % (Auto) (0-4.4) % Baso % (Auto) (0.2-1.2) % Lymph # (Auto) (0.9-3.2) K/mm3 [place] # (Auto) (0.1-0.6) K/mm3 Eos # (Auto) (0-0.3) K/mm3 Baso # (Auto) (0.0-0.1) K/mm3 Abs Immat Gran (auto) (0.00-0.031) K/mm3 Absolute Neuts (auto) (1.3-6.7) K/mm3 Absolute Nucleated RBC (0.0-0.012) K/mm3 Nucleated RBC % (0.0-0.2) % PT (11.1-14.7) Seconds INR Sodium (137-145) mmol/L Potassium (3.4-5.0) mmol/L Chloride (98-107) mmol/L Carbon Dioxide (22-30) mmol/L Anion Gap (4-12) mmol/L BUN (7-17) mg/dL Creatinine (0.7-1.0) mg/dL Estim Creat Clear Calc Cancelled ml/min Estimated GFR > 60 Cancelled (59 - ) Glucose 316 H Cancelled (65-110) mg/dL Hemoglobin A1c (<5.7) % Lactic Acid (0.7-2.0) mmol/L Calcium 9.0 (8.4-10.2) mg/dL Phosphorus (2.5-4.5) mg/dL Magnesium (1.6-2.3) mg/dL Total Bilirubin (0.2-1.3) mg/dL AST (14-36) U/L ALT (6-35) U/L Alkaline Phosphatase (38-126) U/L Ammonia (9-30) umol/L Troponin I (0.000-0.034) ng/mL Total Protein (6.3-8.2) g/dL Albumin (3.5-5.1) g/dL TSH (0.465-4.680) uIU/mL Urine Color (Yellow) Urine Appearance (Clear) Urine pH (5.0-9.0) Ur Specific [place] (1.001-1.035) Urine Protein (Negative) mg/dL Urine Glucose (UA) (Negative) mg/dL Urine Ketones (Negative) mg/dL Ur Blood (Man) (Negative) Urine Nitrate (Negative) Urine Bilirubin (Negative) Urine Urobilinogen (<2.0) mg/dL Leukocyte Esterase Rfl (Negative) YUNG/UL Urine RBC (0-2) /hpf Urine WBC (0-3) /hpf Ur Squamous Epith Cells (Few) /hpf Urine Bacteria /hpf Urine Casts Urine Opiates Screen (Negative) Urine Methadone Screen (Negative) Ur Barbiturates Screen (Negative) Ur Phencyclidine Scrn (Negative) Ur Amphetamine Screen (Negative) U Benzodiazepines Scrn (Negative) Urine Cocaine Screen (Negative) U Cannabinoids Screen (Negative) Ethyl Alcohol (<10) mg/dL 10/14/25 Range/Units 21:03 WBC (4.5-10.0) K/mm3 RBC (4.2-5.4) M/mm3 Hgb (12.0-15.0) g/dL Hct (37.0-47.0) % MCV (80-100) fl MCH (26-34) pg MCHC (32-36) g/dl RDW (11.5-14.5) % Plt Count (150-375) k/mm3 MPV (7.4-10.4) fl Immature Gran % (Auto) (0-0.5) % Neut % (Auto) (45.5-73.1) % Lymph % (Auto) (18.3-44.2) % [place] % (Auto) (2.6-8.5) % Eos % (Auto) (0-4.4) % Baso % (Auto) (0.2-1.2) % Lymph # (Auto) (0.9-3.2) K/mm3 [place] # (Auto) (0.1-0.6) K/mm3 Eos # (Auto) (0-0.3) K/mm3 Baso # (Auto) (0.0-0.1) K/mm3 Abs Immat Gran (auto) (0.00-0.031) K/mm3 Absolute Neuts (auto) (1.3-6.7) K/mm3 Absolute Nucleated RBC (0.0-0.012) K/mm3 Nucleated RBC % (0.0-0.2) % PT (11.1-14.7) Seconds INR Sodium (137-145) mmol/L Potassium (3.4-5.0) mmol/L Chloride (98-107) mmol/L Carbon Dioxide (22-30) mmol/L Anion Gap (4-12) mmol/L BUN (7-17) mg/dL Creatinine (0.7-1.0) mg/dL Estim Creat Clear Calc ml/min Estimated GFR (59 - ) Glucose (65-110) mg/dL Hemoglobin A1c (<5.7) % Lactic Acid (0.7-2.0) mmol/L Calcium Cancelled (8.4-10.2) mg/dL Phosphorus 3.9 (2.5-4.5) mg/dL Magnesium 1.9 (1.6-2.3) mg/dL Total Bilirubin (0.2-1.3) mg/dL AST (14-36) U/L ALT (6-35) U/L Alkaline Phosphatase (38-126) U/L Ammonia (9-30) umol/L Troponin I (0.000-0.034) ng/mL Total Protein (6.3-8.2) g/dL Albumin (3.5-5.1) g/dL TSH (0.465-4.680) uIU/mL Urine Color (Yellow) Urine Appearance (Clear) Urine pH (5.0-9.0) Ur Specific [place] (1.001-1.035) Urine Protein (Negative) mg/dL Urine Glucose (UA) (Negative) mg/dL Urine Ketones (Negative) mg/dL Ur Blood (Man) (Negative) Urine Nitrate (Negative) Urine Bilirubin (Negative) Urine Urobilinogen (<2.0) mg/dL Leukocyte Esterase Rfl (Negative) YUNG/UL Urine RBC (0-2) /hpf Urine WBC (0-3) /hpf Ur Squamous Epith Cells (Few) /hpf Urine Bacteria /hpf Urine Casts Urine Opiates Screen (Negative) Urine Methadone Screen (Negative) Ur Barbiturates Screen (Negative) Ur Phencyclidine Scrn (Negative) Ur Amphetamine Screen (Negative) U Benzodiazepines Scrn (Negative) Urine Cocaine Screen (Negative) U Cannabinoids Screen (Negative) Ethyl Alcohol (<10) mg/dL <Aldo Swift DO - Last Filed: 10/15/25 00:13> ABG Data ABG results: 10/14/25 15:35 VBG pH 7.298 L VBG pCO2 38.3 L VBG pO2 34.3 L VBG HCO3 18.3 L O2 Delivery Device Room air O2 Liters/Min Not Reportable FiO2 21 <Liu Pina MD - Last Filed: 10/14/25 18:24> 10/14/25 15:35 VBG pH 7.298 L VBG pCO2 38.3 L VBG pO2 34.3 L VBG HCO3 18.3 L O2 Delivery Device Room air O2 Liters/Min Not Reportable FiO2 21 <Aldo Swift DO - Last Filed: 10/15/25 00:13> Attestation: I personally reviewed and interpreted this ABG as follows: <Liu Pina MD - Last Filed: 10/14/25 18:24> Imaging Data Attestation: I personally reviewed and interpreted this imaging study as follows: <Liu Pina MD - Last Filed: 10/14/25 18:24> My impression: Chest x-ray shows normal cardiac silhouette no free air or infiltrate. Unremarkable chest x-ray per my interpretation Non con head CT per my interpretation shows no bleed or mass. <Liu Pina MD - Last Filed: 10/14/25 18:24> Radiologist's impression: ITS Impressions Chest X-Ray 10/14/25 15:49 Impression: No acute cardiopulmonary abnormality. CT Brain Angiography 10/14/25 17:19 IMPRESSION: 1. No acute intracranial finding on precontrast study. 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 2. Major arteries of [place] are patent. Dural venous sinuses are patent. Chest/Abdomen/Pelvis CTA 10/14/25 17:21 IMPRESSION: 1. Negative for pulmonary embolism. No acute process within the chest. 2. Colitis detailed above probably infectious. No perforation or abscess. Follow-up suggested to assess resolution 3. Incidental findings above <Liu Pina MD - Last Filed: 10/14/25 18:24> ITS Impressions Chest X-Ray 10/14/25 15:49 Impression: No acute cardiopulmonary abnormality. CT Brain Angiography 10/14/25 17:19 IMPRESSION: 1. No acute intracranial finding on precontrast study. 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 2. Major arteries of [place] are patent. Dural venous sinuses are patent. Chest/Abdomen/Pelvis CTA 10/14/25 17:21 IMPRESSION: 1. Negative for pulmonary embolism. No acute process within the chest. 2. Colitis detailed above probably infectious. No perforation or abscess. Follow-up suggested to assess resolution 3. Incidental findings above <Aldo Swift DO - Last Filed: 10/15/25 00:13> ECG Data EKG #1: Attestation: I personally reviewed and interpreted this ECG as follows: <Liu Pina MD - Last Filed: 10/14/25 18:24> Interpretation: Twelve lead EKG per my interpretation shows sinus rhythm 81 beats per minute. Normal axis. Normal intervals. No evidence of ST-T segment elevation or depression. Some baseline artifact and LVH by voltage criteria otherwise normal EKG. <Liu Pina MD - Last Filed: 10/14/25 18:24> Critical Care Time Critical Care Time Critical Care Time: Yes <Liu Pina MD - Last Filed: 10/14/25 18:24> Time Type: Intermittent <Liu Pina MD - Last Filed: 10/14/25 18:24> Initial evaluation, discuss w/ involved parties, attempting to gather old records: 10 minutes <Liu Pina MD - Last Filed: 10/14/25 18:24> Documenting medical record: 5 minutes <Liu Pina MD - Last Filed: 10/14/25 18:24> Review of results (EKG's, labs, imaging): 10 minutes <Liu Pina MD - Last Filed: 10/14/25 18:24> Serial repeat bedside evaluation: 15 minutes <Liu Pina MD - Last Filed: 10/14/25 18:24> Discussing case with multiple memebers of the care team and consultants: 10 minutes <Liu Pina MD - Last Filed: 10/14/25 18:24> Total Critical Care Time: 50 <Liu Pina MD - Last Filed: 10/14/25 18:24> 50 <Aldo Swift DO - Last Filed: 10/15/25 00:13> Discharge Plan Discharge Clinical Impression: UTI (urinary tract infection) Altered mental status Qualifiers: Altered mental status type: transient alteration of awareness Qualified Code(s): R40.4 - Transient alteration of awareness DKA (diabetic ketoacidosis) Qualifiers: Diabetes mellitus type: type 2 Diabetes mellitus complication detail: without coma Qualified Code(s): E11.10 - Type 2 diabetes mellitus with ketoacidosis without coma Sepsis Qualifiers: Sepsis type: sepsis due to unspecified organism Sepsis acute organ dysfunction status: without acute organ dysfunction Qualified Code(s): A41.9 - Sepsis, unspecified organism <Liu Pina MD - Last Filed: 10/14/25 18:24> Patient Disposition: Still a Patient <Liu Pina MD - Last Filed: 10/14/25 18:24> Condition: Guarded Prognosis <Liu Pina MD - Last Filed: 10/14/25 18:24>
--- NOTE | 2025-10-14 15:08 | ECG_ITS ---
Test Date: 2025-10-14 15:16:16 Measurements Intervals [place] Rate: 81 P: 38 MN: 163 QRS: -19 QRSD: 85 T: 40 QT: 378 QTc: 441 Interpretive Statements SINUS RHYTHM POSSIBLE LEFT ATRIAL ENLARGEMENT POSSIBLE RIGHT VENTRICULAR CONDUCTION DELAY NONSPECIFIC ST & T-WAVE ABNORMALITY- INFERIOR LEADS BASELINE ARTIFACT- I, II, III, AVR, AVL, AVF, V3 BORDERLINE ECG No previous ECG available for comparison Electronically Signed On 10-14-2025 15:25:05 TECHNICAL SUPPORT AGENT by Khai Mccarthy D.O.
[2025-10-14 15:44] LABS: Fractional Inspired Oxygen 21 %; HCO3 VBG 18.3 mEq/l (24.0-30.0); PCO2 VBG 38.3 mmHg (42.0-48.0); PO2 VBG 34.3 mmHg (35.0-45.0); pH VBG 7.298 (7.300-7.400)
[2025-10-14] MEDS: ONDANSETRON INJ 4 MG/2 ML VIAL (16:03)
[2025-10-14] MEDS: SODIUM CHLORIDE 0.9% IV 1,000 ML 999 ML IV CONT ×3 (16:03→22:11)
[2025-10-14 16:14] LABS: Ammonia < 9 umol/L (9-30)
[2025-10-14 16:15] LABS: Alanine Aminotransferase 23 U/L (6-35); Albumin Level 4.6 g/dL (3.5-5.1); Alkaline Phosphatase 181 U/L (38-126); Anion Gap 14 mmol/L (4-12); Aspartate Amino Transferase 22 U/L (14-36); Bilirubin,Total 0.6 mg/dL (0.2-1.3); Blood Urea Nitrogen 12 mg/dL (7-17); Calcium 9.9 mg/dL (8.4-10.2); Carbon Dioxide 18 mmol/L (22-30); Chloride 104 mmol/L (98-107); Estimated CRCL calculation 66 ml/min; Estimated Glomerular Filt Rate > 60; Glucose 411 mg/dL (65-110); Magnesium 2.1 mg/dL (1.6-2.3); Potassium 3.1 mmol/L (3.4-5.0); Sodium 136 mmol/L (137-145); Total Protein 8.4 g/dL (6.3-8.2)
[2025-10-14 16:21] LABS: Hemoglobin A1C 10.2 % (<5.7)
[2025-10-14 16:26] LABS: Troponin I < 0.012 ng/mL (0.000-0.034)
[2025-10-14 16:43] LABS: Add Urine Microscopic? YES; Appearance Urine Clear (Clear); Glucose Urine UA 3+ mg/dL (Negative); Leukocyte Esterase Ur Negative LEU/UL (Negative); Nitrate Urine Positive (Negative); Non Pathogenic Casts 0-2; Specific Grav Ur 1.029 (1.001-1.035)
[2025-10-14 16:43] LABS: INR 1.0; Prothrombin Time 13.3 Seconds (11.1-14.7)
[2025-10-14 16:44] LABS: Thyroid Stimulating Hormone 1.740 uIU/mL (0.465-4.680)
[2025-10-14 16:56] LABS: Cannabinoid Screen Urine Negative (Negative)
[2025-10-14 17:01] LABS: Hematocrit 39.9 % (37.0-47.0); Hemoglobin 13.8 g/dL (12.0-15.0); Immature Granulocyte Percent A 1.4 % (0-0.5); Lymphocytes Absolute Auto 2.11 K/mm3 (0.9-3.2); Mean Corpuscular HGB Conc 34.6 g/dl (32-36); Mean Corpuscular Hemoglobin 33.3 pg (26-34); Mean Corpuscular Volume 96.1 fl (80-100); Nucleated Red Blood Cells Absolute Auto 0.000 K/mm3 (0.0-0.012); Nucleated Red Blood Cells Perc 0.0 % (0.0-0.2); Platelet Count Result 231 k/mm3 (150-375); Red Blood Count 4.15 M/mm3 (4.2-5.4); White Blood Count 15.5 K/mm3 (4.5-10.0)
--- NOTE | 2025-10-14 19:19 | PC.NURSE ---
patient IV blew in ct scan with NS. Patient was disagreeable with another stick or iv, discussion between patient, MD and this RN happened and family was included in the conversation. ultrasound iv was placed and unsuccessful with lab draw, and eventually also infiltrated. patient required multiple conversations with multiple people to allow another iv to be placed. MD okayed not getting blood cultures and starting antibiotics prior to blood culture draw. plan is to get 2nd liter of fluid and redraw labs. patient updated to this plan of care. patient understanding of seriousness of her illness and is compliant with care after some coaching
[2025-10-14] MEDS: cefTRIAXone 2 GM in SODIUM CHLORIDE 0.9% IV 100 ML 200 ML IVPB (19:37)
[2025-10-14 21:24] LABS: Anion Gap 9 mmol/L (4-12); Blood Urea Nitrogen 11 mg/dL (7-17); Calcium 9.0 mg/dL (8.4-10.2); Carbon Dioxide 21 mmol/L (22-30); Chloride 108 mmol/L (98-107); Estimated CRCL calculation 76 ml/min; Estimated Glomerular Filt Rate > 60; Glucose 316 mg/dL (65-110); Magnesium 1.9 mg/dL (1.6-2.3); Potassium 3.9 mmol/L (3.4-5.0); Sodium 138 mmol/L (137-145)
--- NOTE | 2025-10-14 22:03 | P.HP_ITS ---
H&P: HPI History of Present Illness Date/Time: 10/14/25 23:50 Chief Complaint: Vomiting, slurred speech Narrative: 65-year-old female who is a chronic smoker and has not seen a physician in 30 years who presented to the ER with nausea vomiting and transient slurred speech. EMS reported that they were called out for his sick case. When they arrived to the patient's residence they felt that she has some facial droop and slurred speech. The patient reported that just shortly before calling EMS she had acute onset of vertigo to the point that she could not hold her eyes open. She acutely developed intractable vomiting any time she would try to open her eyes. She denied any significant abdominal pain. She was unable to stand up due to her vertigo. She incidental line noted that she had been having 4 days of loose stools 2 times a day. She denied any abdominal cramping. She has chronic urinary frequency. She denies any dysuria, hematuria, hematochezia, melena or mucousy stools. She denies any headache. She does tells me that she knew something was wrong but she did not know what was wrong. She denies any recent ill contacts. On arrival to the ER she was initially tachycardic and EKG demonstrated sinus rhythm with left atrial enlargement, right ventricular conduction delay ST and T-wave abnormalities in inferior leads. Initial labs demonstrated a white count of 15.5 and a normal hemoglobin. Initial BMP demonstrated a mild anion gap acidosis. VBG correlated with these findings. Patient received 3 L of IV fluid hydration with normalization of cap. UA demonstrated nitrates and 4+ bacteria but minimal white cells. CTA of the chest abdomen pelvis demonstrated acute colitis. ER physician documented NIH Stroke Scale of 0. But the patient's symptoms her suspicious for vertigo likely due to gaze palsy. At the time of my neuro exam patient had loss of visual field of the right temporal he could not visualized my finger in till I was directly in front of her right eye. She also had ataxia of her right and and leg. She had noted drooping of her right lip. NIH stroke scale at the time my evaluation with 8. prior history of diabetes glucoses from a BMP performed in the ER in 2019 were elevated to 244. She was instructed on discharge from the ER at that time to follow-up as outpatient for further evaluation. Review of Systems 2 Review of Systems: 12 systems were reviewed with pertinent positives and negatives per HPI. Except as documented in the HPI, all other systems were reviewed and are negative. [facility] Past Medical History Medical History (Updated 10/15/25 @ 01:26 by Mona Bazan DO) Endometriosis Surgical History Surgical History (Updated 10/14/25 @ 22:17 by Mona Bazan DO) History of surgery on right wrist (2003) Due to distal forearm fracture History of hysterectomy Family History Family History (Updated 10/15/25 @ 08:01 by Mona Bazan DO) Other Unknown family medical history Social History Social History (Updated 10/15/25 @ 08:03 by Mona Bazan DO) Social History: The patient lives at home with her . She is a homemaker. They raised 2 sons and a daughter. She has smoked 1 pack of cigarettes per day since she was a young teenager. She denies any history of alcohol use. Code status: Full code Surrogate decision maker: Smoking packs per day: 1 Smoking cigarettes per day: 20.0 Years smoked: 50 Smoking pack-years: 50.00 Smoking status: Heavy tobacco smoker Second hand tobacco smoke exposure: Yes Alcohol intake: never Substance use: never Lack of Transportation: No Lack of Food: Never True Current Housing: I Have Housing Concerned About Future Housing: No Difficulty Paying Gas/Electric Bills: No Difficulty Paying for Meds: No Currently Unemployed: No Education: Associate Degree Difficulty w/ Childcare or Family Care: No Spiritual care concerns: No Meds Home Medications and Allergies Home Medications ?Medication ?Instructions ?Recorded ?Confirmed ?Type ibuprofen 800 mg tablet 800 mg PO TID PRN pain #20 t abs 12/12/19 10/15/25 Rx Allergies Allergy/AdvReac Type Severity Reaction Status Date / Time No Known Allergies Allergy Mild Verified 10/15/25 00:15 Vital Signs Vital Signs - 24 hr 10/14/25 15:09 10/14/25 15:51 10/14/25 15:53 Temperature 95.7 F L Pulse Rate 81 Respiratory Rate 18 Blood Pressure 164/71 H Pulse Oximetry 98 98 Oxygen Delivery Room Air Room Air 10/14/25 16:00 10/14/25 16:01 10/14/25 16:15 Temperature Pulse Rate Respiratory Rate Blood Pressure 168/81 H Pulse Oximetry 100 100 99 Oxygen Delivery 10/14/25 16:16 10/14/25 16:30 10/14/25 16:31 Temperature Pulse Rate Respiratory Rate Blood Pressure 162/70 H 160/70 H Pulse Oximetry 100 100 100 Oxygen Delivery 10/14/25 16:46 10/14/25 17:17 10/14/25 17:30 Temperature Pulse Rate Respiratory Rate Blood Pressure 171/82 H Pulse Oximetry 99 98 Oxygen Delivery 10/14/25 17:49 10/14/25 17:50 10/14/25 18:02 Temperature Pulse Rate Respiratory Rate Blood Pressure 137/67 Pulse Oximetry 99 100 97 Oxygen Delivery 10/14/25 18:15 10/14/25 18:34 10/14/25 18:45 Temperature Pulse Rate Respiratory Rate Blood Pressure Pulse Oximetry 97 99 100 Oxygen Delivery 10/14/25 19:00 10/14/25 19:02 10/14/25 19:15 Temperature Pulse Rate Respiratory Rate Blood Pressure 148/78 H Pulse Oximetry 100 100 100 Oxygen Delivery 10/14/25 19:16 Temperature 97.6 F Pulse Rate Respiratory Rate Blood Pressure 146/84 H Pulse Oximetry 100 Oxygen Delivery Exam 2 Narrative: Weight 65.9 kg BMI 25.7 Const: Other: Acutely ill-appearing, appears older than stated age HENMT: Other: Mucous membranes are moist, patient has large amounts of mucus in posterior oropharynx, Eyes: Other: Right pupil is 2-3 mm larger than the left, on the left eye, with esotropia of the right eye the patient is only able to bring the right eye to midline Neck: Other: Difficult to assess for carotid bruits due to underlying respiratory noise even with patient attempts to hold her breath auscultation is difficult, no lymphadenopathy, no JVD Resp: Other: Rhonchi bilaterally, with expiratory wheezing Cardio: Other: Mildly tachycardic, regular rhythm, 2+ bilateral radial pedal pulses GI: Other: Soft, nontender, nondistended, positive bowel sounds Skin: Other: No jaundice, no pallor, 4-5 second cap refill Neuro: Other: Alert oriented to person, place and month and name of the president, she initially stated the year was 1984 and then corrected herself to 2084, she has drooping of the right lip, however no loss of the right nasal labial fold, she has a showed atrophy of the right eye with unequal pupils with right pupil being more dilated than the left, she has visual loss of the lateral right visual field the and cannot minh the right eye, she has ataxia on the right with finger-nose and with [id number], she has no pronator drift, she has chronic paresthesias of bilateral upper and lower extremities consistent with likely underlying diabetic neuropathy, the patient does not have any tongue deviation but is having difficulty clearing secretions Extrem: Other: Patient has 5/5 assistant to the vice president strength bilaterally, she has 5/5 strength on straight leg raise and on plantar and dorsiflexion, she is able to plantar feet on the bed and gmat instructor pelvis from the bed Psych: Other: Anxious, cooperative, intact judgment and insight Results Labs Labs: Laboratory Tests 10/14/25 16:53 10/14/25 21:03 10/14/25 10/14/25 10/14/25 15:35 15:44 15:44 WBC RBC Hgb Hct MCV MCH MCHC RDW Plt Count MPV Immature Gran % (Auto) Neut % (Auto) Lymph % (Auto) Tompkins % (Auto) Eos % (Auto) Baso % (Auto) Lymph # (Auto) Tompkins # (Auto) Eos # (Auto) Baso # (Auto) Abs Immat Gran (auto) Absolute Neuts (auto) Absolute Nucleated RBC Nucleated RBC % PT 13.3 INR 1.0 VBG pH 7.298 L VBG pCO2 38.3 L VBG pO2 34.3 L VBG HCO3 18.3 L O2 Delivery Device Room air O2 Liters/Min Not Reportable FiO2 21 Sodium 136 L Potassium 3.1 L Chloride 104 Carbon Dioxide 18 L Anion Gap 14 H BUN 12 Creatinine 0.61 L Estim Creat Clear Calc 66 Estimated GFR > 60 Glucose 411 H Hemoglobin A1c 10.2 H Lactic Acid 4.2 H* Calcium 9.9 Phosphorus 4.1 Cancelled Magnesium 2.1 Total Bilirubin AST ALT Alkaline Phosphatase Ammonia Troponin I Total Protein Albumin TSH Urine Color Urine Appearance Urine pH Ur Specific Moody Urine Protein Urine Glucose (UA) Urine Ketones Ur Blood (Man) Urine Nitrate Urine Bilirubin Urine Urobilinogen Leukocyte Esterase Rfl Urine RBC Urine WBC Ur Squamous Epith Cells Urine Bacteria Urine Casts Urine Opiates Screen Urine Methadone Screen Ur Barbiturates Screen Ur Phencyclidine Scrn Ur Amphetamine Screen U Benzodiazepines Scrn Urine Cocaine Screen U Cannabinoids Screen Ethyl Alcohol 10/14/25 10/14/25 10/14/25 15:44 16:32 16:53 WBC 15.5 H RBC 4.15 L Hgb 13.8 Hct 39.9 MCV 96.1 MCH 33.3 MCHC 34.6 RDW 12.6 Plt Count 231 MPV 9.9 Immature Gran % (Auto) 1.4 H Neut % (Auto) 79.7 H Lymph % (Auto) 13.6 L Tompkins % (Auto) 4.7 Eos % (Auto) 0.1 Baso % (Auto) 0.5 Lymph # (Auto) 2.11 Tompkins # (Auto) 0.7 H Eos # (Auto) 0.0 Baso # (Auto) 0.1 Abs Immat Gran (auto) 0.22 H Absolute Neuts (auto) 12.3 H Absolute Nucleated RBC 0.000 Nucleated RBC % 0.0 PT INR VBG pH VBG pCO2 VBG pO2 VBG HCO3 O2 Delivery Device O2 Liters/Min FiO2 Sodium Potassium Chloride Carbon Dioxide Anion Gap BUN Creatinine Estim Creat Clear Calc Estimated GFR Glucose Hemoglobin A1c Lactic Acid Calcium Phosphorus Magnesium Cancelled Total Bilirubin 0.6 AST 22 ALT 23 Alkaline Phosphatase 181 H Ammonia < 9 L Troponin I < 0.012 Total Protein 8.4 H Albumin 4.6 TSH 1.740 Urine Color Yellow Urine Appearance Clear Urine pH 5.5 Ur Specific Moody 1.029 Urine Protein Negative Urine Glucose (UA) 3+ H Urine Ketones 2+ H Ur Blood (Man) Negative Urine Nitrate Positive H Urine Bilirubin Negative Urine Urobilinogen 0.2 Leukocyte Esterase Rfl Negative Urine RBC 0-2 Urine WBC 6-10 H Ur Squamous Epith Cells Occasional Urine Bacteria 4+ H Urine Casts 0-2 Urine Opiates Screen Negative Urine Methadone Screen Negative Ur Barbiturates Screen Negative Ur Phencyclidine Scrn Negative Ur Amphetamine Screen Negative U Benzodiazepines Scrn Negative Urine Cocaine Screen Negative U Cannabinoids Screen Negative Ethyl Alcohol < 10 10/14/25 10/14/25 10/14/25 18:03 18:05 21:03 WBC RBC Hgb Hct MCV MCH MCHC RDW Plt Count MPV Immature Gran % (Auto) Neut % (Auto) Lymph % (Auto) Tompkins % (Auto) Eos % (Auto) Baso % (Auto) Lymph # (Auto) Tompkins # (Auto) Eos # (Auto) Baso # (Auto) Abs Immat Gran (auto) Absolute Neuts (auto) Absolute Nucleated RBC Nucleated RBC % PT INR VBG pH VBG pCO2 VBG pO2 VBG HCO3 O2 Delivery Device O2 Liters/Min FiO2 Sodium 138 Potassium Chloride Carbon Dioxide Anion Gap BUN Creatinine Estim Creat Clear Calc Estimated GFR Glucose Hemoglobin A1c Lactic Acid 3.4 H Calcium Phosphorus Cancelled Magnesium Cancelled Total Bilirubin AST ALT Alkaline Phosphatase Ammonia Troponin I Total Protein Albumin TSH Urine Color Urine Appearance Urine pH Ur Specific Moody Urine Protein Urine Glucose (UA) Urine Ketones Ur Blood (Man) Urine Nitrate Urine Bilirubin Urine Urobilinogen Leukocyte Esterase Rfl Urine RBC Urine WBC Ur Squamous Epith Cells Urine Bacteria Urine Casts Urine Opiates Screen Urine Methadone Screen Ur Barbiturates Screen Ur Phencyclidine Scrn Ur Amphetamine Screen U Benzodiazepines Scrn Urine Cocaine Screen U Cannabinoids Screen Ethyl Alcohol 10/14/25 10/14/25 10/14/25 21:03 21:03 21:03 WBC RBC Hgb Hct MCV MCH MCHC RDW Plt Count MPV Immature Gran % (Auto) Neut % (Auto) Lymph % (Auto) Tompkins % (Auto) Eos % (Auto) Baso % (Auto) Lymph # (Auto) Tompkins # (Auto) Eos # (Auto) Baso # (Auto) Abs Immat Gran (auto) Absolute Neuts (auto) Absolute Nucleated RBC Nucleated RBC % PT INR VBG pH VBG pCO2 VBG pO2 VBG HCO3 O2 Delivery Device O2 Liters/Min FiO2 Sodium Cancelled Potassium 3.9 Cancelled Chloride 108 H Cancelled Carbon Dioxide 21 L Anion Gap BUN Creatinine Estim Creat Clear Calc Estimated GFR Glucose Hemoglobin A1c Lactic Acid Calcium Phosphorus Magnesium Total Bilirubin AST ALT Alkaline Phosphatase Ammonia Troponin I Total Protein Albumin TSH Urine Color Urine Appearance Urine pH Ur Specific Moody Urine Protein Urine Glucose (UA) Urine Ketones Ur Blood (Man) Urine Nitrate Urine Bilirubin Urine Urobilinogen Leukocyte Esterase Rfl Urine RBC Urine WBC Ur Squamous Epith Cells Urine Bacteria Urine Casts Urine Opiates Screen Urine Methadone Screen Ur Barbiturates Screen Ur Phencyclidine Scrn Ur Amphetamine Screen U Benzodiazepines Scrn Urine Cocaine Screen U Cannabinoids Screen Ethyl Alcohol 10/14/25 10/14/25 10/14/25 21:03 21:03 21:03 WBC RBC Hgb Hct MCV MCH MCHC RDW Plt Count MPV Immature Gran % (Auto) Neut % (Auto) Lymph % (Auto) Tompkins % (Auto) Eos % (Auto) Baso % (Auto) Lymph # (Auto) Tompkins # (Auto) Eos # (Auto) Baso # (Auto) Abs Immat Gran (auto) Absolute Neuts (auto) Absolute Nucleated RBC Nucleated RBC % PT INR VBG pH VBG pCO2 VBG pO2 VBG HCO3 O2 Delivery Device O2 Liters/Min FiO2 Sodium Potassium Chloride Carbon Dioxide Cancelled Anion Gap 9 Cancelled BUN 11 Cancelled Creatinine 0.52 L Estim Creat Clear Calc Estimated GFR Glucose Hemoglobin A1c Lactic Acid Calcium Phosphorus Magnesium Total Bilirubin AST ALT Alkaline Phosphatase Ammonia Troponin I Total Protein Albumin TSH Urine Color Urine Appearance Urine pH Ur Specific Moody Urine Protein Urine Glucose (UA) Urine Ketones Ur Blood (Man) Urine Nitrate Urine Bilirubin Urine Urobilinogen Leukocyte Esterase Rfl Urine RBC Urine WBC Ur Squamous Epith Cells Urine Bacteria Urine Casts Urine Opiates Screen Urine Methadone Screen Ur Barbiturates Screen Ur Phencyclidine Scrn Ur Amphetamine Screen U Benzodiazepines Scrn Urine Cocaine Screen U Cannabinoids Screen Ethyl Alcohol 10/14/25 10/14/25 10/14/25 21:03 21:03 21:03 WBC RBC Hgb Hct MCV MCH MCHC RDW Plt Count MPV Immature Gran % (Auto) Neut % (Auto) Lymph % (Auto) Tompkins % (Auto) Eos % (Auto) Baso % (Auto) Lymph # (Auto) Tompkins # (Auto) Eos # (Auto) Baso # (Auto) Abs Immat Gran (auto) Absolute Neuts (auto) Absolute Nucleated RBC Nucleated RBC % PT INR VBG pH VBG pCO2 VBG pO2 VBG HCO3 O2 Delivery Device O2 Liters/Min FiO2 Sodium Potassium Chloride Carbon Dioxide Anion Gap BUN Creatinine Cancelled Estim Creat Clear Calc 76 Cancelled Estimated GFR > 60 Cancelled Glucose 316 H Hemoglobin A1c Lactic Acid Calcium Phosphorus Magnesium Total Bilirubin AST ALT Alkaline Phosphatase Ammonia Troponin I Total Protein Albumin TSH Urine Color Urine Appearance Urine pH Ur Specific Moody Urine Protein Urine Glucose (UA) Urine Ketones Ur Blood (Man) Urine Nitrate Urine Bilirubin Urine Urobilinogen Leukocyte Esterase Rfl Urine RBC Urine WBC Ur Squamous Epith Cells Urine Bacteria Urine Casts Urine Opiates Screen Urine Methadone Screen Ur Barbiturates Screen Ur Phencyclidine Scrn Ur Amphetamine Screen U Benzodiazepines Scrn Urine Cocaine Screen U Cannabinoids Screen Ethyl Alcohol 10/14/25 10/14/25 21:03 21:03 WBC RBC Hgb Hct MCV MCH MCHC RDW Plt Count MPV Immature Gran % (Auto) Neut % (Auto) Lymph % (Auto) Tompkins % (Auto) Eos % (Auto) Baso % (Auto) Lymph # (Auto) Tompkins # (Auto) Eos # (Auto) Baso # (Auto) Abs Immat Gran (auto) Absolute Neuts (auto) Absolute Nucleated RBC Nucleated RBC % PT INR VBG pH VBG pCO2 VBG pO2 VBG HCO3 O2 Delivery Device O2 Liters/Min FiO2 Sodium Potassium Chloride Carbon Dioxide Anion Gap BUN Creatinine Estim Creat Clear Calc Estimated GFR Glucose Cancelled Hemoglobin A1c Lactic Acid Calcium 9.0 Cancelled Phosphorus 3.9 Magnesium 1.9 Total Bilirubin AST ALT Alkaline Phosphatase Ammonia Troponin I Total Protein Albumin TSH Urine Color Urine Appearance Urine pH Ur Specific Moody Urine Protein Urine Glucose (UA) Urine Ketones Ur Blood (Man) Urine Nitrate Urine Bilirubin Urine Urobilinogen Leukocyte Esterase Rfl Urine RBC Urine WBC Ur Squamous Epith Cells Urine Bacteria Urine Casts Urine Opiates Screen Urine Methadone Screen Ur Barbiturates Screen Ur Phencyclidine Scrn Ur Amphetamine Screen U Benzodiazepines Scrn Urine Cocaine Screen U Cannabinoids Screen Ethyl Alcohol Impressions Chest X-Ray 10/14/25 15:49 Impression: No acute cardiopulmonary abnormality. CT Brain Angiography 10/14/25 17:19 IMPRESSION: 1. No acute intracranial finding on precontrast study. 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 2. Major arteries of [place] are patent. Dural venous sinuses are patent. 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 TECHNIQUE: CTA scan with 3D Reconstructions of the chest, CT of the abdomen and pelvis was performed with contrast Isovue 300, 92cc injected IV. One or more of the following dose reduction techniques were used: automated exposure control, adjustment of the mA and/or kV according to patient size, use of iterative reconstruction technique. Unless otherwise stated, incidental findings do not require dedicated follow up imaging FINDINGS: CT chest: No significant coronary calcification is present ([id number]) LUNGS: Contrast bolus is adequate, there is no pulmonary embolism identified. No tracheomalacia. No bronchiectasis. Minimal pulmonary fibrotic changes. Minimal emphysematous changes. No significant honeycombing identified or areas of bullous formation. Right lower lobe pleural-based 6 mm nodule, in a high-risk patient six-month follow-up is suggested. HEART AND PERICARDIUM: Within normal limits. AORTA: Atherosclerotic changes of the aorta without aneurysm. MEDIASTINUM: Unremarkable. THYROID: The thyroid is unremarkable. CT abdomen: LIVER: Unremarkable, liver contours intact, no lesions. SPLEEN: Unremarkable, no splenomegaly. KIDNEYS: Right Kidney: Unremarkable. No calculi. No hydronephrosis. Left Kidney: Unremarkable. No calculi. No hydronephrosis ADRENAL GLANDS: Unremarkable. PANCREAS: GALLBLADDER/BILIARY: Unremarkable. No biliary dilatation. STOMACH AND ESOPHAGUS: Circumferential thickening of the esophagus. Very small hiatal hernia. BOWEL/MESENTERY: Duodenal diverticulum 2 x 2 cm. There is thickening of the rectum and sigmoid colon as well as the descending colon with mild mucosal hyperemia but no perforation or abscess. Minimal thickening noted of the remaining large bowel. Appendix normal. Mesentery appears normal. There are no thickened or dilated loops of small bowel appreciated. RETROPERITONEUM: Unremarkable AORTA/VASCULATURE: Normal caliber aorta. FREE FLUID OR FREE AIR: None. CT pelvis: SOLID ORGANS/REPRODUCTIVE: Hysterectomy. No adnexal mass. BLADDER: Within normal limits. LYMPHADENOPATHY: No lymphadenopathy. OSSEOUS STRUCTURES: No acute osseous abnormality.No suspicious lesions. OVERLYING SOFT TISSUES: Unremarkable. IMPRESSION: 1. Negative for pulmonary embolism. No acute process within the chest. 2. Colitis detailed above probably infectious. No perforation or abscess. Follow-up suggested to assess resolution 3. Incidental findings above Quality VTE Prophylaxis VTE prophylaxis: mechanical ordered Stroke Date of last known normal: 10/14/25 Time of last known normal: 13:00 Stroke Scale Stroke scale date:: 10/14/25 Stroke scale time:: 23:55 1a Level of conciousness: alert-0 1b Level of consciousness: answers both correctly-0 1c Level of consciousness: obeys both correctly-0 2 Best gaze: forced deviation-2 3 Visual: complete hemianopia-2 4 Facial palsy: minor paralysis-1 5a Motor: left arm: no drift-0 5b Motor: right arm: no drift-0 6a Motor: left leg: no drift-0 6b Motor: right leg: no drift-0 7 Limb ataxia: present in two limbs-2 8 Sensory: normal-0 9 Best language: no aphasia-0 10 Dysarthria: slurs some words-1 11 Extinction and inattention: no abnormality-0 Level:: 8 Assessment and Plan Assessment and plan (1) Uncontrolled diabetes mellitus: Qualifiers: Diabetes mellitus type: type 2 Glycemic state: with hyperglycemia Q ualified Code(s): E11.65 - Type 2 diabetes mellitus with hyperglycemia Status: Acute (2) DKA (diabetic ketoacidosis): Qualifiers: Diabetes mellitus complication detail: without coma Diabetes mellitus type: type 2 Qualified Code(s): E11.10 - Type 2 diabetes mellitus with ketoacidosis without coma Code(s): E11.10 - Type 2 diabetes mellitus with ketoacidosis without coma Status: Acute (3) Sepsis: Qualifiers: Sepsis acute organ dysfunction status: without acute organ dysfunction Sepsis type: sepsis due to unspecified organism Qualified Code(s): A41.9 - Sepsis, unspecified organism Code(s): A41.9 - Sepsis, unspecified organism Status: Acute (4) Colitis presumed to be due to infection: Code(s): K52.9 - Noninfective gastroenteritis and colitis, unspecified Status: Acute (5) Bacteriuria with pyuria: Code(s): R82.71 - Bacteriuria; R82.81 - Pyuria Status: Acute (6) Lactic acidosis due to diabetes mellitus: Code(s): E11.10 - Type 2 diabetes mellitus with ketoacidosis without coma Status: Acute (7) Altered mental status: Qualifiers: Altered mental status type: transient alteration of awareness Qualified Code(s): R40.4 - Transient alteration of awareness Code(s): R41.82 - Altered mental status, unspecified Status: Acute Plan Patient presented with slurred speech and facial droop. CT angio of the brain was negative for acute process unfortunately CTA of the neck was not completed in the ER. 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 I discussed the patient's case with Dr. Mccann from the neurology service stat [place] who recommended completing the evaluation CTA of the neck for completeness. At artery given the patient rectal aspirin. The patient was demonstrating evidence of difficulty managing her secretions in swallowing so she was made NPO. I a lipid panel has been ordered returned this morning with triglycerides of 194 total cholesterol of 233 LDL of 149 HDL of 38 TSH was normal at 1.74. Patient will need to be started on statin therapy but currently NPO. We do not have neurologic services at our facility for the next several days. An ablation was waiting for bed placement at [facility]. Initial stat read interpretation of CT of the neck stated no occlusion. 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 I called to update the transfer line they told me that the patient had been assigned a bed in the step-down unit. They recommended holding off on further anticoagulation besides anti-platelet therapy due to increased risk of bleeding. I called the patient's [place] and the patient's daughter and updated them as to the patient's hospital course overnight and the plan to transfer the patient. I went back to the patient's bedside and updated her as well. On repeat evaluation of patient just prior to transfer the patient did have nystagmus of the right eye when gazing to the right. Her main complaint is intractable vertigo. Patient was in mild DKA on presentation to the ER but DKA resolved after IV fluid administration. Hyperglycemia due to untreated diabetes the patient failed to follow-up in 2019 regarding hyperglycemia noted on ER labs. Glucoses have improved after 3 L of IV fluid administration. Anion gap has normalized in serum bicarb has also improved. Patient still does have some lactic acidosis likely multifactorial due to dehydration and uncontrolled diabetes. Will continue IV fluid hydration at 150 mL an hour overnight and repeat lactic acid and electrolyte panel in a.m.. Will consult simulation educator. Patient would benefit from initiation of metformin on discharge but will hold off on starting metformin at this time due to lactic acidosis. Will start the patient on Januvia. Will also start the patient on moderate dose sliding scale insulin with Accu-Cheks a.c. HS, consistent carbohydrate diet and hypoglycemia protocol as needed. Patient will need Education regarding Accu-Cheks and or insulin administration prior to discharge. Will repeat CMP and lactic acid with a.m. labs. Patient imaging did demonstrate evidence of presumed infectious colitis the patient did meet sepsis criteria on presentation with tachycardia, leukocytosis and lactic acidosis. Blood cultures were ordered but not obtained prior to antibiotic administration as patient had poor vascular access and they were having difficulty obtaining the specimen. Subsequently the patient had received Rocephin prior to blood cultures being obtained. Will add Flagyl to the Rocephin for better GI coverage. The patient's urinalysis also demonstrates bacteriuria with some nitrates she could have a concomitant UTI or urge urinary symptoms could also be due to polyuria associated with hyperglycemia. Urine cultures have been obtained and are pending. Will repeat CBC with a.m. labs. 2 hours and 40 minutes spent in critical care activities Due to a high probability of clinically significant, life threatening deterioration, the patient required my highest level of preparedness to intervene emergently and I personally spent this critical care time directly and personally managing the patient. This critical care time included obtaining a history; examining the patient; pulse oximetry; ordering and review of studies; arranging urgent treatment with development of a management plan; evaluation of patient's response to treatment; frequent reassessment; and discussions with other providers. It was exclusive of separately billable procedures and treating other patients and teaching time. Please see Assessment and Plan section and the rest of the note for further information on patient assessment and treatment. Hospitalist [facility] Advance Care Plan I have confirmed that the patient's Advanced Care Plan is present, code status is documented, or surrogate decision maker is listed in patient medical record.: Yes Medication Reconciliation I have utilized all available resources to obtain, update and review the patients current medications (includes all prescriptions, OTC, herbals, cannabis, and nutritional supplements).: Yes
--- NOTE | 2025-10-14 22:42 | PC.NURSE ---
[id number] HERE TO ATTEMPT TO DRAW BLOOD CULTURES.
--- NOTE | 2025-10-14 22:53 | WPCEDHO ---
ED Hand Off Checklist All vitals saved:YES IV Site documented:YES All med administrations documented:YES Triage Note Triage Note pt to ed from home via 10/14/25 15:09 [facility]. they were called out for a sick case ems stated that she had a facial droop and slurred speech upon their arrival. patient has appropriate floor clerk strength. pt states she started vomiting today - about an hour and a half ago. and states that the left side of her neck is hurting but denies any injury Allergies No Known Allergies Allergy (Mild, Verified 12/12/19 11:42) Administered/Completed Medications Discontinued Medications Sodium Chloride (Normal Saline Iv) 1,000 mls @ 999 mls/hr IV CONT .Q1H1M STA Stop: 10/14/25 16:08 Last Infusion: 10/14/25 17:08 Dose: Infused Documented By: Admin: 10/14/25 16:03 Dose: 999 mls/hr Documented By: ZOILA Ceftriaxone Sodium 2 gm/ (Sodium Chloride) 100 mls @ 200 mls/hr IVPB ONCE STA Stop: 10/14/25 17:31 Last Infusion: 10/14/25 20:33 Dose: Infused Documented By: Admin: 10/14/25 19:37 Dose: 200 mls/hr Documented By: KRISTY Sodium Chloride (Normal Saline Iv) 1,000 mls @ 999 mls/hr IV CONT .Q1H1M STA Stop: 10/14/25 18:03 Last Infusion: 10/14/25 19:40 Dose: Infused Documented By: Admin: 10/14/25 18:21 Dose: 999 mls/hr Documented By: JEFFRY Sodium Chloride (Normal Saline Iv) 1,000 mls @ 999 mls/hr IV CONT .Q1H1M STA Stop: 10/14/25 18:57 Last Admin: 10/14/25 22:11 Dose: 999 mls/hr Documented By: PAULINE Ondansetron HCl (Ondansetron Inj 4 Mg/2 Ml Vial) Confirm Administered Dose 4 mg .ROUTE .STK-MED ONE Stop: 10/14/25 15:59 Last Admin: 10/14/25 16:03 Dose: 4 mg Documented By: OZILA Notes 10/14/25 22:42 Nurse Note by Candace Tate0-LAB HERE TO ATTEMPT TO DRAW BLOOD CULTURES. Initialized on 10/14/25 22:42 - END OF NOTE 10/14/25 19:19 Nurse Note by Milena Rock. patient IV blew in ct scan with NS. Patient was disagreeable with another stick or iv, discussion between patient, MD and this RN happened and family was included in the conversation. ultrasound iv was placed and unsuccessful with lab draw, and eventually also infiltrated. patient required multiple conversations with multiple people to allow another iv to be placed. MD okayed not getting blood cultures and starting antibiotics prior to blood culture draw. plan is to get 2nd liter of fluid and redraw labs. patient updated to this plan of care. patient understanding of seriousness of her illness and is compliant with care after some coaching Initialized on 10/14/25 19:19 - END OF NOTE Interventions/Assessments IV / Saline Lock, Insert Start: 10/14/25 15:09 Freq: STAT Status: Active Protocol: Document 10/14/25 15:09 AJW (Rec: 10/14/25 15:52 AJW [id number]) IV Assessment Peripheral Access Left Hand IV Catheter Access Initiated IV Insertion Date 10/14/25 IV Insertion Time 15:52 Catheter Gauge 20 IV Site Assessment WNL IV Care and WNL Maintenance PA: Cardiovascular Assessment Start: 10/14/25 15:04 Freq: Status: Active Protocol: Document 10/14/25 22:51 JJJ (Rec: 10/14/25 22:51 JJJ [id number]) Cardiovascular Assessment Cardiovascular None Symptoms PA: Neurological Assessment Start: 10/14/25 15:04 Freq: Status: Active Protocol: Document 10/14/25 22:31 LMS (Rec: 10/14/25 22:32 LMS [id number]) Neurological Assessment Level of Alert Consciousness Arousable to Verbal Orientation Oriented to Person,Oriented to Place,Oriented to Time Neurological None Symptoms Unable to Redirect No Behavior Behavior Cooperative Patient Able to Comprehend Comprehension Memory Description Intact PA: Respiratory Assessment Start: 10/14/25 15:04 Freq: Status: Active Protocol: Document 10/14/25 22:51 JJJ (Rec: 10/14/25 22:52 JJJ [id number]) Respiratory Assessment Respiratory Focused Assessment Parameters Symptoms Difficulty Clearing Secretions Effort Accessory Muscle Use Depth Shallow Chest Expansion Symmetrical Cough Description Hacking,Non-Productive Cough Frequency Intermittent Oxygen Delivery Oxygen Delivery Room Air Last Vital Signs Temperature 97.6 F 10/14/25 19:16 Pulse Rate 102 H 10/14/25 22:36 Respiratory Rate 14 10/14/25 22:36 Pulse Oximetry 100 10/14/25 22:36 Blood Pressure 146/82 H 10/14/25 22:36 Blood Pressure Mean 103 10/14/25 22:36 Blood Pressure Position Supine 10/14/25 22:36 Oxygen Delivery Room Air 10/14/25 22:51 Weight 65.9 kg 10/14/25 15:09 Last Result - Abnormals Only WBC 15.5 K/mm3 (4.5-10.0) H 10/14/25 16:53 RBC 4.15 M/mm3 (4.2-5.4) L 10/14/25 16:53 Immature Gran % (Auto) 1.4 % (0-0.5) H 10/14/25 16:53 Neut % (Auto) 79.7 % (45.5-73.1) H 10/14/25 16:53 Lymph % (Auto) 13.6 % (18.3-44.2) L 10/14/25 16:53 Kerr # (Auto) 0.7 K/mm3 (0.1-0.6) H 10/14/25 16:53 Abs Immat Gran (auto) 0.22 K/mm3 (0.00-0.031) H 10/14/25 16:53 Absolute Neuts (auto) 12.3 K/mm3 (1.3-6.7) H 10/14/25 16:53 VBG pH 7.298 (7.300-7.400) L 10/14/25 15:35 VBG pCO2 38.3 mmHg (42.0-48.0) L 10/14/25 15:35 VBG pO2 34.3 mmHg (35.0-45.0) L 10/14/25 15:35 VBG HCO3 18.3 mEq/l (24.0-30.0) L 10/14/25 15:35 Sodium 136 mmol/L (137-145) L 10/14/25 15:44 Potassium 3.1 mmol/L (3.4-5.0) L 10/14/25 15:44 Chloride 108 mmol/L (98-107) H 10/14/25 21:03 Carbon Dioxide 21 mmol/L (22-30) L 10/14/25 21:03 Anion Gap 14 mmol/L (4-12) H 10/14/25 15:44 Creatinine 0.52 mg/dL (0.7-1.0) L 10/14/25 21:03 Glucose 316 mg/dL (65-110) H 10/14/25 21:03 Hemoglobin A1c 10.2 % (<5.7) H 10/14/25 15:44 Lactic Acid 3.4 mmol/L (0.7-2.0) H 10/14/25 18:03 Alkaline Phosphatase 181 U/L (38-126) H 10/14/25 15:44 Ammonia < 9 umol/L (9-30) L 10/14/25 15:44 Total Protein 8.4 g/dL (6.3-8.2) H 10/14/25 15:44 Urine Glucose (UA) 3+ mg/dL (Negative) H 10/14/25 16:32 Urine Ketones 2+ mg/dL (Negative) H 10/14/25 16:32 Urine Nitrate Positive (Negative) H 10/14/25 16:32 Urine WBC 6-10 /hpf (0-3) H 10/14/25 16:32 Urine Bacteria 4+ /hpf H 10/14/25 16:32 Most Recent Suicide Severity Rating Suicide Severity Rating NO RISK INDICATED 10/14/25 15:09
[2025-10-14] MEDS: SODIUM CHLORIDE 0.9% IV 1,000 ML 125 ML IV CONT (22:59)
[2025-10-14] MEDS: IPRATROPIUM 0.5 MG/ALBUTEROL SULFATE 2.5 MG (BASE) AMPUL.NEB 3 ML INHALATION (23:29)
--- NOTE | 2025-10-15 00:15 | ADMGEN ---
This patient, Yareli Padron, was admitted to Medical Room 340-01. Patient/family oriented to hospital policies and general routines including ID bracelet, bed and alarms, visiting hours, pain management, procedures, bathroom and other care routines, personal items, smoking policy, room service/diet, and visiting hours. Information on how to activate the Rapid Response Team has been discussed. Patient/Family are encouraged to report perceived risks to care and to ask questions if they do not understand what they are told or what they should do.
[2025-10-15] MEDS: metroNIDAZOLE 500 MG/ISO 100ML 500 MG/100 ML BAG 100 MG IVPB (00:48)
[2025-10-15] MEDS: ASPIRIN 300 MG SUPPOSITORY RECTAL (00:48)
--- NOTE | 2025-10-15 01:40 | PC.NURSE ---
[facility] transfer center, [facility], in contact for [facility]age [facility].
[2025-10-15 01:52] VITALS: BP 130/98; PULSE 102; RESP 20; TEMP 36.4; O2SAT 98
--- NOTE | 2025-10-15 02:06 | PC.NURSE ---
Patient off floor to CT.
--- NOTE | 2025-10-15 05:39 | PC.NURSE ---
Transfer center updated. No beds available at this time.
[2025-10-15 05:51] LABS: Hematocrit 36.9 % (37.0-47.0); Hemoglobin 12.8 g/dL (12.0-15.0); Immature Granulocyte Percent A 0.9 % (0-0.5); Lymphocytes Absolute Auto 2.43 K/mm3 (0.9-3.2); Mean Corpuscular HGB Conc 34.7 g/dl (32-36); Mean Corpuscular Hemoglobin 33.1 pg (26-34); Mean Corpuscular Volume 95.3 fl (80-100); Nucleated Red Blood Cells Absolute Auto 0.000 K/mm3 (0.0-0.012); Nucleated Red Blood Cells Perc 0.0 % (0.0-0.2); Platelet Count Result 223 k/mm3 (150-375); Red Blood Count 3.87 M/mm3 (4.2-5.4); White Blood Count 13.3 K/mm3 (4.5-10.0)
[2025-10-15 06:00] VITALS: BP 162/75; PULSE 101; RESP 20; TEMP 36.9; O2SAT 98
[2025-10-15] MEDS: INSULIN ASPART (*BKC) 100 UNITS/ML SUB-Q (06:20)
[2025-10-15 06:24] LABS: Anion Gap 6 mmol/L (4-12); Blood Urea Nitrogen 7 mg/dL (7-17); Calcium 8.5 mg/dL (8.4-10.2); Carbon Dioxide 22 mmol/L (22-30); Chloride 110 mmol/L (98-107); Cholesterol 233 mg/dL (0-200); Estimated CRCL calculation 70 ml/min; Estimated Glomerular Filt Rate > 60; Glucose 212 mg/dL (65-110); HDL Direct 38 mg/dL; Potassium 3.4 mmol/L (3.4-5.0); Sodium 138 mmol/L (137-145); Triglycerides 194 mg/dL (<150)
--- NOTE | 2025-10-15 07:45 | PC.NURSE ---
REPORT CALLED TO SURESH SETHI AT [facility] AT THIS TIME.
--- NOTE | 2025-10-15 09:31 | P.TS_ITS ---
Transfer Discharge Sum: Prov Provider Date of admission: 10/14/25 21:33 Primary care physician: TURRET LATHE MACHINIST PHYSICIAN Admitting clinician: Mona Bazan DO DS: Admitting Diagnosis Discharge Date 10/15/2025 Admitting Diagnosis Vomiting, slurred speech DS: Discharge Diagnosis Discharge Diagnosis (1) Posterior circulation stroke: Code(s): I63.50 - Cerebral infarction due to unspecified occlusion or stenosis of unspecified cerebral artery Status: Acute Transfer Discharge Sum: Med Medications Active and Home Medications: Home Medications ibuprofen 800 mg tablet 800 mg PO TID PRN pain #20 tabs 12/12/19 [Rx Confirmed 10/15/25] Active Medications Aspirin (Aspirin 300 Mg Suppository) 300 mg RECTAL DAILY RANDY Dextrose (Dextrose 50% 25 Gm/50 Ml Syringe) 12.5 gm IV PUSH PRN PRN; Protocol PRN Reason: Hypoglycemia Enoxaparin Sodium (Enoxaparin 40 Mg/0.4 Ml Syringe) 40 mg SUB-Q DAILY RANDY Glucagon (Glucagon For Inj 1 Mg Vial) 1 mg IM PRN PRN; Protocol PRN Reason: Hypoglycemia Glucose (Glucose Oral Gel 15 Gm Of Glucse In 37.5 Gm Tube) 15 gm PO PRN PRN; Protocol PRN Reason: Hypoglycemia Ceftriaxone Sodium 1 gm/ (Sodium Chloride) 50 mls @ 100 mls/hr IVPB Q24H RANDY Sodium Chloride (Normal Saline Iv) 1,000 mls @ 75 mls/hr IV CONT .[id number] [facility] Last Admin: 10/14/25 22:59 Dose: 125 mls/hr Dextrose (Dextrose 5% 1,000 Ml) 1,000 mls @ 100 mls/hr IVPB PRN PRN; Protocol PRN Reason: Hypoglycemia Metronidazole (Flagyl 500 Mg/Iso Soln 100 Ml) 500 mg in 100 mls @ 100 mls/hr IVPB Q8H [facility] Last Infusion: 10/15/25 01:50 Dose: Infused Insulin Aspart (Insulin Aspart (*Bkc) 100 Units/Ml) 3 - 6 units SUB-Q Q6HR [facility]; Protocol Last Admin: 10/15/25 06:20 Dose: 3 units Perflutren Lipid Microsphere (Perflutren Lipid Microspheres 1.5 Ml Vial Diluted To 10 Ml Total Volume) 0 ml IV PUSH ONCE PRN; Protocol PRN Reason: adequate visualization Stop: 10/18/25 07:58 Perflutren Lipid Microsphere (Perflutren Lipid Microspheres 1.5 Ml Vial Diluted To 10 Ml Total Volume) 0 ml IV PUSH ONCE PRN; Protocol PRN Reason: adequate visualization Stop: 10/18/25 08:10 Promethazine HCl (Promethazine Hcl 25 Mg/Ml Ampul) 25 mg IM Q4H PRN PRN Reason: Nausea And Vomiting Sitagliptin Phosphate (Sitagliptin Phosphate 50 Mg Tablet) 50 mg PO QAM [facility] Transfer Discharge Sum: Hosp Hospital Course Hospital course: Reason for Transfer * Acute posterior circulation cerebrovascular accident (CVA) with left vertebral artery occlusion and severe left subclavian artery stenosis, requiring higher level of neurologic care and monitoring not available at this facility. History of Present Illness 65-year-old female, chronic smoker, with no regular medical care for 30 years, presented with acute onset of severe vertigo, intractable vomiting, transient slurred speech, and right facial droop. EMS noted facial droop and slurred speech on arrival. Patient reported inability to stand due to vertigo and had 4 days of loose stools. No abdominal pain, headache, or recent illness. On arrival, she was tachycardic; EKG showed sinus rhythm with left atrial enlargement and right ventricular conduction delay. Labs revealed leukocytosis, hyperglycemia, mild anion gap acidosis, and lactic acidosis. Imaging revealed acute colitis and old left occipital infarct. Neurologic exam was notable for right gaze palsy, right hemianopia, right facial droop, and right-sided ataxia. NIH Stroke Scale was 8 at time of evaluation. Pertinent Medical History * Type 2 Diabetes Mellitus?(uncontrolled, new diagnosis, prior glucose 244 in 2020, A1c 10.2%) * Endometriosis * No known drug allergies Surgical History: * Right wrist surgery (2004, distal forearm fracture) * Hysterectomy Social History: * Lives with , homemaker, 50 pack-year smoking history, no alcohol or illicit drug use. Hospital Course * Neurologic: * Initial CT brain angiography: No acute intracranial findings; old left occipital infarct. * Repeat imaging: CTA neck revealed distal left vertebral artery occlusion and severe left subclavian artery stenosis (non-calcified thrombus), concerning for embolic posterior circulation stroke. * Exam: Right gaze palsy, right hemianopia, right facial droop, right-sided ataxia, nystagmus, intractable vertigo, difficulty managing secretions. * NIHSS: 8. * No acute intervention performed at this facility; patient made NPO due to dysphagia and aspiration risk. Rectal aspirin administered. No anticoagulation started due to bleeding risk. * Neurology at tertiary center consulted; transfer arranged for higher level of care. * Metabolic: * DKA:?Mild DKA on presentation (glucose 411, anion gap 14, bicarb 18, lactic acid 4.2), resolved with 3L IV fluids. Lactic acidosis improved but not fully resolved. * Diabetes:?Started on sliding scale insulin and sitagliptin; metformin deferred due to lactic acidosis. Diabetes education planned. * Electrolytes:?Mild hypokalemia (K 3.1), corrected with fluids. * Infectious: * Sepsis:?Met SIRS criteria (tachycardia, leukocytosis, lactic acidosis) likely secondary to colitis and/or UTI. * Colitis:?CT abdomen/pelvis showed thickening of rectum, sigmoid, and descending colon with mucosal hyperemia, consistent with colitis (presumed infectious, no abscess or perforation). * UTI:?UA with bacteriuria, positive nitrites, 4+ bacteria, minimal WBCs; urine culture pending. * Antibiotics:?Ceftriaxone started prior to blood cultures (due to poor access); metronidazole added for GI coverage. * Other: * Lipid panel:?Elevated (TC 233, LDL 149, HDL 38, TG 194); statin planned but deferred due to NPO status. * VTE prophylaxis:?Mechanical ordered. Pertinent Laboratory and Imaging Findings * CBC:?WBC 15.5 (neutrophil predominant), Hgb 13.8, Plt 231 * BMP:?Glucose 411 ? 316, Na 136?138, K 3.1 ? 3.9, CO2 18?21, Cr 0.61 ? 0.52, BUN 12?11 * A1c:?10.2% * Lactic acid:?4.2 ? 3.4 * UA:?Positive nitrites, 4+ bacteria, 6?10 WBC/hpf, 3+ glucose, 2+ ketones * CT Brain Angio:?No acute findings, old left occipital infarct * CTA Neck:?Distal left vertebral artery occlusion, severe left subclavian artery stenosis (non-calcified thrombus) * CTA Chest/Abd/Pelvis:?No PE, colitis as above, 6 mm RLL lung nodule (f/u suggested), duodenal diverticulum, circumferential esophageal thickening Medications at Transfer * Aspirin?(rectal, administered) * Ceftriaxone?(IV) * Metronidazole?(IV) * Sliding scale insulin * Sitagliptin?(held NPO) * IV fluids?(D5 ? NS at 150 mL/hr) * Mechanical VTE prophylaxis * Ibuprofen 800 mg PO TID PRN?(home, held NPO) Active Problems at Transfer * Acute posterior circulation stroke?(left vertebral artery occlusion, right- sided findings) * Mild DKA, resolved * Sepsis, likely secondary to colitis and/or UTI * Infectious colitis * Bacteriuria/possible UTI * Lactic acidosis, improving * Uncontrolled type 2 diabetes mellitus * Dysphagia, aspiration risk * Hyperlipidemia (not yet treated) * Chronic tobacco use Pending Studies * Urine culture * Blood cultures (not obtained prior to antibiotics) * Repeat lactic acid, CMP, CBC in AM Summary and Disposition Ms. Padron is a 65-year-old woman with new-onset, uncontrolled diabetes, mild DKA, sepsis (presumed secondary to colitis and/or UTI), and acute posterior circulation stroke due to left vertebral artery occlusion. She was stabilized with IV fluids, insulin, and broad-spectrum antibiotics. Neurologic symptoms and imaging findings prompted transfer to a tertiary care center for higher-level neurologic monitoring and management. She is NPO due to dysphagia and aspiration risk. Family updated and aware of plan. Patient Condition: Stable Time Spent with Patient Time attestation: Total time spent providing and/or coordinating transfer services: DS: Data Data Completed and Pending Labs on day of discharge: Labs from last 24 hours 10/15/25 10/15/25 10/15/25 05:17 05:12 00:52 WBC 13.3 H RBC 3.87 L Hgb 12.8 Hct 36.9 L MCV 95.3 MCH 33.1 MCHC 34.7 RDW 12.8 Plt Count 223 MPV 9.7 Immature Gran % (Auto) 0.9 H Neut % (Auto) 72.9 Lymph % (Auto) 18.2 L [place] % (Auto) 7.7 Eos % (Auto) 0.0 Baso % (Auto) 0.3 Lymph # (Auto) 2.43 [place] # (Auto) 1.0 H Eos # (Auto) 0.0 Baso # (Auto) 0.0 Abs Immat Gran (auto) 0.12 H Absolute Neuts (auto) 9.7 H Absolute Nucleated RBC 0.000 Nucleated RBC % 0.0 PT INR VBG pH VBG pCO2 VBG pO2 VBG HCO3 O2 Delivery Device O2 Liters/Min FiO2 Sodium 138 Potassium 3.4 Chloride 110 H Carbon Dioxide 22 Anion Gap 6 BUN 7 Creatinine 0.57 L Estim Creat Clear Calc 70 Estimated GFR > 60 Glucose 212 H POC Capillary Glucose 220 H 272 H Hemoglobin A1c Lactic Acid Calcium 8.5 Phosphorus Magnesium Total Bilirubin AST ALT Alkaline Phosphatase Ammonia Troponin I Total Protein Albumin Triglycerides 194 H Cholesterol 233 H LDL Cholesterol Direct 149 HDL Direct 38 TSH Urine Color Urine Appearance Urine pH Ur Specific [place] Urine Protein Urine Glucose (UA) Urine Ketones Ur Blood (Man) Urine Nitrate Urine Bilirubin Urine Urobilinogen Leukocyte Esterase Rfl Urine RBC Urine WBC Ur Squamous Epith Cells Urine Bacteria Urine Casts Urine Opiates Screen Urine Methadone Screen Ur Barbiturates Screen Ur Phencyclidine Scrn Ur Amphetamine Screen U Benzodiazepines Scrn Urine Cocaine Screen U Cannabinoids Screen Ethyl Alcohol 10/14/25 10/14/25 10/14/25 21:03 21:03 21:03 WBC RBC Hgb Hct MCV MCH MCHC RDW Plt Count MPV Immature Gran % (Auto) Neut % (Auto) Lymph % (Auto) [place] % (Auto) Eos % (Auto) Baso % (Auto) Lymph # (Auto) [place] # (Auto) Eos # (Auto) Baso # (Auto) Abs Immat Gran (auto) Absolute Neuts (auto) Absolute Nucleated RBC Nucleated RBC % PT INR VBG pH VBG pCO2 VBG pO2 VBG HCO3 O2 Delivery Device O2 Liters/Min FiO2 Sodium Potassium Chloride Carbon Dioxide Anion Gap BUN Creatinine Estim Creat Clear Calc Estimated GFR Cancelled Glucose Cancelled 316 H POC Capillary Glucose Hemoglobin A1c Lactic Acid Calcium Cancelled 9.0 Phosphorus 3.9 Magnesium 1.9 Total Bilirubin AST ALT Alkaline Phosphatase Ammonia Troponin I Total Protein Albumin Triglycerides Cholesterol LDL Cholesterol Direct HDL Direct TSH Urine Color Urine Appearance Urine pH Ur Specific [place] Urine Protein Urine Glucose (UA) Urine Ketones Ur Blood (Man) Urine Nitrate Urine Bilirubin Urine Urobilinogen Leukocyte Esterase Rfl Urine RBC Urine WBC Ur Squamous Epith Cells Urine Bacteria Urine Casts Urine Opiates Screen Urine Methadone Screen Ur Barbiturates Screen Ur Phencyclidine Scrn Ur Amphetamine Screen U Benzodiazepines Scrn Urine Cocaine Screen U Cannabinoids Screen Ethyl Alcohol 10/14/25 10/14/25 10/14/25 21:03 21:03 21:03 WBC RBC Hgb Hct MCV MCH MCHC RDW Plt Count MPV Immature Gran % (Auto) Neut % (Auto) Lymph % (Auto) [place] % (Auto) Eos % (Auto) Baso % (Auto) Lymph # (Auto) [place] # (Auto) Eos # (Auto) Baso # (Auto) Abs Immat Gran (auto) Absolute Neuts (auto) Absolute Nucleated RBC Nucleated RBC % PT INR VBG pH VBG pCO2 VBG pO2 VBG HCO3 O2 Delivery Device O2 Liters/Min FiO2 Sodium Potassium Chloride Carbon Dioxide Anion Gap BUN Cancelled Creatinine Cancelled 0.52 L Estim Creat Clear Calc Cancelled 76 Estimated GFR > 60 Glucose POC Capillary Glucose Hemoglobin A1c Lactic Acid Calcium Phosphorus Magnesium Total Bilirubin AST ALT Alkaline Phosphatase Ammonia Troponin I Total Protein Albumin Triglycerides Cholesterol LDL Cholesterol Direct HDL Direct TSH Urine Color Urine Appearance Urine pH Ur Specific [place] Urine Protein Urine Glucose (UA) Urine Ketones Ur Blood (Man) Urine Nitrate Urine Bilirubin Urine Urobilinogen Leukocyte Esterase Rfl Urine RBC Urine WBC Ur Squamous Epith Cells Urine Bacteria Urine Casts Urine Opiates Screen Urine Methadone Screen Ur Barbiturates Screen Ur Phencyclidine Scrn Ur Amphetamine Screen U Benzodiazepines Scrn Urine Cocaine Screen U Cannabinoids Screen Ethyl Alcohol 10/14/25 10/14/25 10/14/25 21:03 21:03 21:03 WBC RBC Hgb Hct MCV MCH MCHC RDW Plt Count MPV Immature Gran % (Auto) Neut % (Auto) Lymph % (Auto) [place] % (Auto) Eos % (Auto) Baso % (Auto) Lymph # (Auto) [place] # (Auto) Eos # (Auto) Baso # (Auto) Abs Immat Gran (auto) Absolute Neuts (auto) Absolute Nucleated RBC Nucleated RBC % PT INR VBG pH VBG pCO2 VBG pO2 VBG HCO3 O2 Delivery Device O2 Liters/Min FiO2 Sodium Potassium Chloride Cancelled Carbon Dioxide Cancelled 21 L Anion Gap Cancelled 9 BUN 11 Creatinine Estim Creat Clear Calc Estimated GFR Glucose POC Capillary Glucose Hemoglobin A1c Lactic Acid Calcium Phosphorus Magnesium Total Bilirubin AST ALT Alkaline Phosphatase Ammonia Troponin I Total Protein Albumin Triglycerides Cholesterol LDL Cholesterol Direct HDL Direct TSH Urine Color Urine Appearance Urine pH Ur Specific [place] Urine Protein Urine Glucose (UA) Urine Ketones Ur Blood (Man) Urine Nitrate Urine Bilirubin Urine Urobilinogen Leukocyte Esterase Rfl Urine RBC Urine WBC Ur Squamous Epith Cells Urine Bacteria Urine Casts Urine Opiates Screen Urine Methadone Screen Ur Barbiturates Screen Ur Phencyclidine Scrn Ur Amphetamine Screen U Benzodiazepines Scrn Urine Cocaine Screen U Cannabinoids Screen Ethyl Alcohol 10/14/25 10/14/25 10/14/25 21:03 21:03 21:03 WBC RBC Hgb Hct MCV MCH MCHC RDW Plt Count MPV Immature Gran % (Auto) Neut % (Auto) Lymph % (Auto) [place] % (Auto) Eos % (Auto) Baso % (Auto) Lymph # (Auto) [place] # (Auto) Eos # (Auto) Baso # (Auto) Abs Immat Gran (auto) Absolute Neuts (auto) Absolute Nucleated RBC Nucleated RBC % PT INR VBG pH VBG pCO2 VBG pO2 VBG HCO3 O2 Delivery Device O2 Liters/Min FiO2 Sodium Cancelled 138 Potassium Cancelled 3.9 Chloride 108 H Carbon Dioxide Anion Gap BUN Creatinine Estim Creat Clear Calc Estimated GFR Glucose POC Capillary Glucose Hemoglobin A1c Lactic Acid Calcium Phosphorus Magnesium Total Bilirubin AST ALT Alkaline Phosphatase Ammonia Troponin I Total Protein Albumin Triglycerides Cholesterol LDL Cholesterol Direct HDL Direct TSH Urine Color Urine Appearance Urine pH Ur Specific [place] Urine Protein Urine Glucose (UA) Urine Ketones Ur Blood (Man) Urine Nitrate Urine Bilirubin Urine Urobilinogen Leukocyte Esterase Rfl Urine RBC Urine WBC Ur Squamous Epith Cells Urine Bacteria Urine Casts Urine Opiates Screen Urine Methadone Screen Ur Barbiturates Screen Ur Phencyclidine Scrn Ur Amphetamine Screen U Benzodiazepines Scrn Urine Cocaine Screen U Cannabinoids Screen Ethyl Alcohol 10/14/25 10/14/25 10/14/25 18:05 18:03 16:53 WBC 15.5 H RBC 4.15 L Hgb 13.8 Hct 39.9 MCV 96.1 MCH 33.3 MCHC 34.6 RDW 12.6 Plt Count 231 MPV 9.9 Immature Gran % (Auto) 1.4 H Neut % (Auto) 79.7 H Lymph % (Auto) 13.6 L [place] % (Auto) 4.7 Eos % (Auto) 0.1 Baso % (Auto) 0.5 Lymph # (Auto) 2.11 [place] # (Auto) 0.7 H Eos # (Auto) 0.0 Baso # (Auto) 0.1 Abs Immat Gran (auto) 0.22 H Absolute Neuts (auto) 12.3 H Absolute Nucleated RBC 0.000 Nucleated RBC % 0.0 PT INR VBG pH VBG pCO2 VBG pO2 VBG HCO3 O2 Delivery Device O2 Liters/Min FiO2 Sodium Potassium Chloride Carbon Dioxide Anion Gap BUN Creatinine Estim Creat Clear Calc Estimated GFR Glucose POC Capillary Glucose Hemoglobin A1c Lactic Acid 3.4 H Calcium Phosphorus Cancelled Magnesium Cancelled Total Bilirubin AST ALT Alkaline Phosphatase Ammonia Troponin I Total Protein Albumin Triglycerides Cholesterol LDL Cholesterol Direct HDL Direct TSH Urine Color Urine Appearance Urine pH Ur Specific [place] Urine Protein Urine Glucose (UA) Urine Ketones Ur Blood (Man) Urine Nitrate Urine Bilirubin Urine Urobilinogen Leukocyte Esterase Rfl Urine RBC Urine WBC Ur Squamous Epith Cells Urine Bacteria Urine Casts Urine Opiates Screen Urine Methadone Screen Ur Barbiturates Screen Ur Phencyclidine Scrn Ur Amphetamine Screen U Benzodiazepines Scrn Urine Cocaine Screen U Cannabinoids Screen Ethyl Alcohol 10/14/25 10/14/25 10/14/25 16:32 15:44 15:44 WBC RBC Hgb Hct MCV MCH MCHC RDW Plt Count MPV Immature Gran % (Auto) Neut % (Auto) Lymph % (Auto) [place] % (Auto) Eos % (Auto) Baso % (Auto) Lymph # (Auto) [place] # (Auto) Eos # (Auto) Baso # (Auto) Abs Immat Gran (auto) Absolute Neuts (auto) Absolute Nucleated RBC Nucleated RBC % PT INR VBG pH VBG pCO2 VBG pO2 VBG HCO3 O2 Delivery Device O2 Liters/Min FiO2 Sodium Potassium Chloride Carbon Dioxide Anion Gap BUN Creatinine Estim Creat Clear Calc Estimated GFR Glucose POC Capillary Glucose Hemoglobin A1c Lactic Acid Calcium Phosphorus Cancelled Magnesium Cancelled 2.1 Total Bilirubin 0.6 AST 22 ALT 23 Alkaline Phosphatase 181 H Ammonia < 9 L Troponin I < 0.012 Total Protein 8.4 H Albumin 4.6 Triglycerides Cholesterol LDL Cholesterol Direct HDL Direct TSH 1.740 Urine Color Yellow Urine Appearance Clear Urine pH 5.5 Ur Specific [place] 1.029 Urine Protein Negative Urine Glucose (UA) 3+ H Urine Ketones 2+ H Ur Blood (Man) Negative Urine Nitrate Positive H Urine Bilirubin Negative Urine Urobilinogen 0.2 Leukocyte Esterase Rfl Negative Urine RBC 0-2 Urine WBC 6-10 H Ur Squamous Epith Cells Occasional Urine Bacteria 4+ H Urine Casts 0-2 Urine Opiates Screen Negative Urine Methadone Screen Negative Ur Barbiturates Screen Negative Ur Phencyclidine Scrn Negative Ur Amphetamine Screen Negative U Benzodiazepines Scrn Negative Urine Cocaine Screen Negative U Cannabinoids Screen Negative Ethyl Alcohol < 10 10/14/25 10/14/25 15:44 15:35 WBC RBC Hgb Hct MCV MCH MCHC RDW Plt Count MPV Immature Gran % (Auto) Neut % (Auto) Lymph % (Auto) [place] % (Auto) Eos % (Auto) Baso % (Auto) Lymph # (Auto) [place] # (Auto) Eos # (Auto) Baso # (Auto) Abs Immat Gran (auto) Absolute Neuts (auto) Absolute Nucleated RBC Nucleated RBC % PT 13.3 INR 1.0 VBG pH 7.298 L VBG pCO2 38.3 L VBG pO2 34.3 L VBG HCO3 18.3 L O2 Delivery Device Room air O2 Liters/Min Not Reportable FiO2 21 Sodium 136 L Potassium 3.1 L Chloride 104 Carbon Dioxide 18 L Anion Gap 14 H BUN 12 Creatinine 0.61 L Estim Creat Clear Calc 66 Estimated GFR > 60 Glucose 411 H POC Capillary Glucose Hemoglobin A1c 10.2 H Lactic Acid 4.2 H* Calcium 9.9 Phosphorus 4.1 Magnesium Total Bilirubin AST ALT Alkaline Phosphatase Ammonia Troponin I Total Protein Albumin Triglycerides Cholesterol LDL Cholesterol Direct HDL Direct TSH Urine Color Urine Appearance Urine pH Ur Specific [place] Urine Protein Urine Glucose (UA) Urine Ketones Ur Blood (Man) Urine Nitrate Urine Bilirubin Urine Urobilinogen Leukocyte Esterase Rfl Urine RBC Urine WBC Ur Squamous Epith Cells Urine Bacteria Urine Casts Urine Opiates Screen Urine Methadone Screen Ur Barbiturates Screen Ur Phencyclidine Scrn Ur Amphetamine Screen U Benzodiazepines Scrn Urine Cocaine Screen U Cannabinoids Screen Ethyl Alcohol
== END 2025-10-15 09:40 | disposition short-term general hospital (02) | DRG 720 ==
LOC: ANHED 18:24 → ANH3MED 22:30
PROVIDERS: Admitting Provider Internal Medicine; Emergency Provider Emergency Medicine; Visit Provider Internal Medicine
DX: A41.9 Sepsis, unspecified organism (principal); N39.0 Urinary tract infection, site not specified; A09 Infectious gastroenteritis and colitis, unspecified; I63.212 Cerebral infarction due to unspecified occlusion or stenosis of left vertebral artery; R27.0 Ataxia, unspecified; H55.09 Other forms of nystagmus; H53.47 Heteronymous bilateral field defects; R13.10 Dysphagia, unspecified; R47.81 Slurred speech; R29.810 Facial weakness; E87.6 Hypokalemia; E11.10 Type 2 diabetes mellitus with ketoacidosis without coma; R35.0 Frequency of micturition; F17.210 Nicotine dependence, cigarettes, uncomplicated; R29.708 NIHSS score 8; E78.5 Hyperlipidemia, unspecified
CPT/HCPCS: 36415; 70496; 70498; 71045; 71275; 74177; 80048; 80053; 80061; 80307; 81001; 82077; 82140; 82803; 82948; 83036; 83605; 83735; 84100; 84443; 84484; 85025; 85610; 87040; 87086; 87186; 93005; 94640; 96361; 96365; 96375; 99285; A9270; J0696; J1815; J1836; J2405; J7030; Q9967